=== PATIENT | female | born 1945 | race Caucasian/White ===

== ENCOUNTER → 2018-08-24 12:45 | Outpatient (BNVA) | payer MEDICARE, BC, SELFPAY | PROVIDERS: PCP Family Medicine; Referring Provider Family Medicine; Visit Provider Surgery | DX: Z12.11 Encounter for screening for malignant neoplasm of colon (principal); I10 Essential (primary) hypertension; R14.0 Abdominal distension (gaseous) ==

== ENCOUNTER 2018-09-10 11:53 | Emergency (ER) | payer MEDICARE, BC, SELFPAY ==
[2018-09-10] VITALS (166 sets, daily range): BP systolic 145–183; BP diastolic 72–94; PULSE 63–79; RESP 9–37; TEMP 36.5–36.7; O2SAT 86–99
--- NOTE | 2018-09-10 12:18 | W.ED.GENAD ---
Discharge Plan Disposition Patient Disposition: HOME Condition: Stable Discharge Details Chief Complaint: Chest Pain Clinical Impression: Chest pain in adult, Essential hypertension Primary Care Provider: Sandrine Dolan ED Provider: Karl Virk Home Meds and New Rx's Prescriptions: New ranitidine HCl [Zantac] 150 mg tablet 150 mg PO DAILY Qty: 14 RF: 0 Continued prednisone 20 mg tablet 20 mg PO DAILY PRNRF: 0 polyethylene glycol 3350 17 gram powder in packet 255 g PO DAILY Qty: 15 RF: 0 bisacodyl [Dulcolax (bisacodyl)] 5 mg tablet,delayed release (DR/EC) 5 mg PO ONCE Qty: 4 RF: 0 montelukast [Singulair] 10 MG tablet 10 mg PO HS Qty: 90 RF: 4 fexofenadine [Eunice Allergy] 180 MG tablet 180 mg PO DAILY RF: 0 Discharge Instructions Instructions: Chest Pain (ED) Additional Instructions: Please feel free to return to the emergency department for any new or worsening symptoms, or further concerns she may have. Otherwise follow-up with your primary care provider for reassessment of your high blood pressure along with your chest pain symptoms. Please take medications as prescribed. Referrals: Sandrine Dolan MD, [place] [Primary Care Provider] - (Follow-up with your primary care provider for reassessment.) Discharge Data Discharge Date/Time-TO BE ENTERED AT DEPARTURE: 09/10/18 16:55 Medical Decision Making Pt complaint of Chest pain x 1 week. substernal and epigastric in nature. Patient does state that at times eating makes this worse along with lying flat. Suspicion of GERD but plan to rule out ACS. Physical exam is unremarkable. Plan to check EKG, labs, chest x-ray. Patient given GI cocktail pending results. Labs reviewed and negative troponin otherwise nondiagnostic labs and negative chest x-ray. Second troponin checked and was also negative. Patient remained hypertensive throughout emergency department stay but stated improvement of symptoms specifically after GI cocktail was given initially. Patient was offered outpatient stress testing along with consideration of starting her on a antihypertensive given her high blood pressure that is been persistent through the emergency department stay. Patient is refusing any further medication but is agreeable to trying Zantac to see if this helps. Patient does state that she has a primary care follow-up on Thursday. Close return precautions were discussed with patient and she was informed she may return for any new or worsening symptoms or further concerns she may have. After discussion of diagnosis and plan of care patient has no further needs, questions, or concerns and states clear understanding to return to the emergency department for any worsening symptoms. ECG Data Interpretation: Sinus rhythm, rate of 73, no STEMI, nondiagnostic. EKG reviewed with Dr. Alvarez. [facility] General Mode of arrival: ambulatory. Date/Time Provider Initiated Documentation: 09/10/18 11:55. Limitations to Documentation: no limitations. Information obtained by: patient and RN notes reviewed. History of Present Illness 73 year old F presents to the emergency department with the chief complaint of Chest pain, described as mild, with intensity rated at 2. Quality is described as sharp, and is localized to the chest. Patient started experiencing this week(s) (1) and it has been intermittent. Eating worsens symptoms . Patient notes no other symptoms.. Patient did receive the following treatments prior to arrival, other (Herbal supplements) Related Data Home Medications Medication Instructions Recorded Confirmed montelukast [Singulair] 10 mg PO HS #90 tab-cap NS 03/01/15 09/10/18 fexofenadine [Eunice Allergy] 180 mg PO DAILY tab-cap 04/22/16 09/10/18 prednisone 20 mg tablet 20 mg PO DAILY PRN tab 07/27/18 09/10/18 bisacodyl 5 mg tablet,delayed 5 mg PO ONCE #4 tab 08/24/18 09/10/18 release polyethylene glycol 3350 17 gram 255 g PO DAILY #15 each 08/24/18 09/10/18 oral powder packet ranitidine HCl [Zantac] 150 mg PO DAILY #14 tab 09/10/18 Previous Rx's Medication Instructions Recorded bisacodyl 5 mg tablet,delayed 5 mg PO ONCE #4 tab 08/24/18 release polyethylene glycol 3350 17 gram 255 g PO DAILY #15 each 08/24/18 oral powder packet ranitidine HCl [Zantac] 150 mg PO DAILY #14 tab 09/10/18 Allergies Allergy/AdvReac Type Severity Reaction Status Date / Time albuterol Allergy Mild HIVES; Unverified 09/10/18 12:11 ITCHING metronidazole Allergy Unknown Unverified 09/10/18 12:11 tetanus and diphtheria AdvReac Unknown BECOMES Unverified 09/10/18 12:11 toxoids ILL; HIGH FEVER FOOD STARCH AdvReac Mild CANNOT Uncoded 09/10/18 12:11 NAME THEM ALL GRAIN AdvReac Mild BLOATING Uncoded 09/10/18 12:11 General Stated Complaint: Chest Pain АННА: 2 Review of Systems Constitutional Denies chills, Denies fever(s) and Denies malaise Cardiovascular Reports as per HPI, Reports chest pain, Denies chest pain with activity, Denies syncope, Denies irregular heart rhythm, Denies palpitations and Denies dyspnea Respiratory Denies cough, Denies hemoptysis and Denies dyspnea Gastrointestinal Denies abdominal pain, Reports dyspepsia, Denies nausea and Denies vomiting Musculoskeletal Denies myalgias Neurologic Denies syncope Psychiatric Denies anxiety Endocrine Denies cold intolerance, Denies heat intolerance and Denies palpitations [facility] Medical History Synovial cyst of lumbar facet joint (Chronic 04/08/17) Sleep apnea (Chronic 08/19/17) Neuropathy (Chronic 01/06/17) Low back pain, non-specific (Chronic) Knee pain (Resolved) Insomnia (Chronic) Essential hypertension (Chronic 02/01/18) Dupuytren's contracture of hand (Chronic 04/22/16) Diverticulitis of colon (Chronic) Depressive disorder (Chronic) Cervical spondylosis (Chronic) Asthma (Chronic) Dizzy (Resolved 09/06/15) Dysfunctional uterine bleeding (Resolved) Generalized osteoarthrosis (Resolved) Grief at loss of child (Resolved 11/10/16) Impaired glucose tolerance (Resolved 11/28/13) Impaired renal function (Resolved 11/28/13) Internal derangement of right knee (Resolved 09/17/16) Lateral epicondylitis (Resolved) Lateral epicondylitis (Resolved) Other specified bacterial agents as the cause of diseases classified elsewhere (Resolved) Rash (Resolved 12/03/17) Renal and ureteric calculus (Resolved 02/12/17) Trochanteric bursitis of right hip (Resolved 09/17/16) Ulcerative colitis (Resolved) Postnasal drip (Inactive 12/12/15) Surgical History H/O arthroscopy of knee (Resolved) History of bladder surgery (Resolved) S/P laparoscopic hysterectomy (Resolved) S/P tonsillectomy and adenoidectomy (Resolved) Arthroplasty of knee Bladder Surgery Colonoscopy - MAC (~2006) Hysterectomy, Laproscopic (~1997) Tonsillectomy and adenoidectomy Family History Mother Neoplasm Brother Depression Smoker COPD (chronic obstructive pulmonary disease) Maternal Grandfather Heart disease Paternal Grandfather No problems noted. Maternal Grandmother Neoplasm Stroke Paternal Grandmother Cancer Son Asthma Son Hyperlipidemia Son Adrenal insufficiency Social History Smoking/Tobacco Use Status: Never Alcohol Intake: current Alcohol Intake frequency: 0-2 drinks per day Alcohol type: wine and hard liquor Drug use: Never Substance use type: does not use Caregiver/Support person: No Household members: none Pets and animals: Yes Pets and animals: cat(s) and dog(s) Sexually active: No Current gender identity: decline to answer What is your relationship status?: How often do you talk on the phone with friends or family?: three or more times per week How often do you get together with friends or relatives?: once per week How often do you attend episcopal or mormon services?: 4 or more times per year Do you belong to any clubs or organized social groups?: no Panel score (0-1 are the most socially isolated patients): 2 Duration: decline to answer Frequency: 1-2 times per week Darline/Yazidism: Moravian Special darline needs: No Do you feel safe at home: Yes Do you feel safe in your relationship?: Yes Exam Const General: cooperative, healthy appearing, comfortable, no acute distress, not diaphoretic and not ill appearing Nutritional Appearance: average body habitus Orientation: alert, awake and oriented x3 Limitations: mental status not altered Neck Neck: normal visual inspection, full ROM, trachea midline, supple and no anterior neck swelling Thyroid: thyroid normal Carotids: normal carotid upstroke and no bruits Chest Chest: normal inspection of the chest Resp Effort & Inspection: normal respiratory effort and able to speak in complete sentences Auscultation: clear to auscultation bilaterally Cardio Jugular venous pressure: no JVD Palpation: normal PMI Rate: regular rate Rhythm: regular rhythm Heart Sounds: S1 normal, S2 normal, no click, no gallops, no murmurs and no rubs Bruits: no abdominal aortic bruits and no carotid bruits Pulses: radial pulses present bilaterally 2+ GI Inspection: normal to inspection Palpation: soft, no aortic enlargement, no pulsatile masses and nontender Auscultation: normal bowel sounds Skin General skin exam: no rashes or lesions noted Neuro General: alert, awake, oriented x3, tone normal and moves all extremities Course Vital Signs Temperature 36.7 C 09/10/18 12:01 Pulse 79 09/10/18 12:01 Respiratory Rate 16 09/10/18 12:01 Blood Pressure 182/93 H 09/10/18 12:01 Pulse Oximetry 97 09/10/18 12:01 Temperature 36.7 C 09/10/18 12:01 Temperature Source Temporal Artery Scan 09/10/18 12:01 Pulse 79 09/10/18 12:01 Respiratory Rate 16 09/10/18 12:01 Respiratory Effort Non-Labored 09/10/18 12:05 Blood Pressure 182/93 H 09/10/18 12:01 Blood Pressure Position Supine 09/10/18 12:01 Pulse Oximetry 97 09/10/18 12:01 Oxygen Delivery Method Room Air 09/10/18 12:01 Oxygen Flow Rate 0 09/10/18 12:01 Pain Level 2 09/10/18 12:01
--- NOTE | 2018-09-10 12:22 | ED.GENADUL_ITS ---
Discharge Plan Disposition Patient Disposition: HOME Condition: Stable Discharge Details Chief Complaint: Chest Pain Clinical Impression: Chest pain in adult, Essential hypertension Primary Care Provider: Sandrine Dolan ED Provider: Karl Virk Home Meds and New Rx's Prescriptions: New ranitidine HCl [Zantac] 150 mg tablet 150 mg PO DAILY Qty: 14 RF: 0 Continued prednisone 20 mg tablet 20 mg PO DAILY PRNRF: 0 polyethylene glycol 3350 17 gram powder in packet 255 g PO DAILY Qty: 15 RF: 0 bisacodyl [Dulcolax (bisacodyl)] 5 mg tablet,delayed release (DR/EC) 5 mg PO ONCE Qty: 4 RF: 0 montelukast [Singulair] 10 MG tablet 10 mg PO HS Qty: 90 RF: 4 fexofenadine [Eunice Allergy] 180 MG tablet 180 mg PO DAILY RF: 0 Discharge Instructions Instructions: Chest Pain (ED) Additional Instructions: Please feel free to return to the emergency department for any new or worsening symptoms, or further concerns she may have. Otherwise follow-up with your primary care provider for reassessment of your high blood pressure along with your chest pain symptoms. Please take medications as prescribed. Referrals: Sandrine Dloan MD, [place] [Primary Care Provider] - (Follow-up with your primary care provider for reassessment.) Discharge Data Discharge Date/Time-TO BE ENTERED AT DEPARTURE: 09/10/18 16:55 Medical Decision Making Pt complaint of Chest pain x 1 week. substernal and epigastric in nature. Patient does state that at times eating makes this worse along with lying flat. Suspicion of GERD but plan to rule out ACS. Physical exam is unremarkable. Plan to check EKG, labs, chest x-ray. Patient given GI cocktail pending results. Labs reviewed and negative troponin otherwise nondiagnostic labs and negative chest x-ray. Second troponin checked and was also negative. Patient remained hypertensive throughout emergency department stay but stated improvement of symptoms specifically after GI cocktail was given initially. Patient was offered outpatient stress testing along with consideration of starting her on a antihypertensive given her high blood pressure that is been persistent through the emergency department stay. Patient is refusing any further medication but is agreeable to trying Zantac to see if this helps. Patient does state that she has a primary care follow-up on Thursday. Close return precautions were discussed with patient and she was informed she may return for any new or worsening symptoms or further concerns she may have. After discussion of diagnosis and plan of care patient has no further needs, questions, or concerns and states clear understanding to return to the emergency department for any worsening symptoms. ECG Data Interpretation: Sinus rhythm, rate of 73, no STEMI, nondiagnostic. EKG reviewed with Dr. Alvarez. [facility] General Mode of arrival: ambulatory . Date/Time Provider Initiated Documentation: 09/10/18 11:55 . Limitations to Documentation: no limitations . Information obtained by: patient and RN notes reviewed . History of Present I llness 73 year old F presents to the emergency department with the chief complaint of Chest pain, described as mild, with intensity rated at 2. Quality is described as sharp, and is localized to the chest. Patient started experiencing this week(s) (1) and it has been intermittent. Eating worsens symptoms . Patient notes no other symptoms.. Patient did receive the following treatments prior to arrival, other (Herbal supplements) Related Data Home Medications Medication Instructions Recorded Confirmed montelukast [Singulair] 10 mg PO HS #90 tab-cap NS 03/01/15 09/10/18 fexofenadine [Eunice Allergy] 180 mg PO DAILY tab-cap 04/22/16 09/10/18 prednisone 20 mg tablet 20 mg PO DAILY PRN tab 07/27/18 09/10/18 bisacodyl 5 mg tablet,delayed 5 mg PO ONCE #4 tab 08/24/18 09/10/18 release polyethylene glycol 3350 17 gram 255 g PO DAILY #15 each 08/24/18 09/10/18 oral powder packet ranitidine HCl [Zantac] 150 mg PO DAILY #14 tab 09/10/18 Previous Rx's Medication Instructions Recorded bisacodyl 5 mg tablet,delayed 5 mg PO ONCE #4 tab 08/24/18 release polyethylene glycol 3350 17 gram 255 g PO DAILY #15 each 08/24/18 oral powder packet ranitidine HCl [Zantac] 150 mg PO DAILY #14 tab 09/10/18 Allergies Allergy/AdvReac Type Severity Reaction Status Date / Time albuterol Allergy Mild HIVES; Unverified 09/10/18 12:11 ITCHING metronidazole Allergy Unknown Unverified 09/10/18 12:11 tetanus and diphtheria AdvReac Unknown BECOMES Unverified 09/10/18 12:11 toxoids ILL; HIGH FEVER FOOD STARCH AdvReac Mild CANNOT Uncoded 09/10/18 12:11 NAME THEM ALL GRAIN AdvReac Mild BLOATING Uncoded 09/10/18 12:11 General Stated Complaint: Chest Pain АННА: 2 Review of Systems Constitutional Denies chills, Denies fever(s) and Denies malaise Cardiovascular Reports as per HPI, Reports chest pain, Denies chest pain with activity, Denies syncope, Denies irregular heart rhythm, Denies palpitations and Denies dyspnea Respiratory Denies cough, Denies hemoptysis and Denies dyspnea Gastrointestinal Denies abdominal pain, Reports dyspepsia, Denies nausea and Denies vomiting Musculoskeletal Denies myalgias Neurologic Denies syncope Psychiatric Denies anxiety Endocrine Denies cold intolerance, Denies heat intolerance and Denies palpitations [facility] Medical History Synovial cyst of lumbar facet joint (Chronic 04/08/17) Sleep apnea (Chronic 08/19/17) Neuropathy (Chronic 01/06/17) Low back pain, non-specific (Chronic) Knee pain (Resolved) Insomnia (Chronic) Essential hypertension (Chronic 02/01/18) Dupuytren's contracture of hand (Chronic 04/22/16) Diverticulitis of colon (Chronic) Depressive disorder (Chronic) Cervical spondylosis (Chronic) Asthma (Chronic) Dizzy (Resolved 09/06/15) Dysfunctional uterine bleeding (Resolved) Generalized osteoarthrosis (Resolved) Grief at loss of child (Resolved 11/10/16) Impaired glucose tolerance (Resolved 11/28/13) Impaired renal function (Resolved 11/28/13) Internal derangement of right knee (Resolved 09/17/16) Lateral epicondylitis (Resolved) Lateral epicondylitis (Resolved) Other specified bacterial agents as the cause of diseases classified elsewhere (Resolved) Rash (Resolved 12/03/17) Renal and ureteric calculus (Resolved 02/12/17) Trochanteric bursitis of right hip (Resolved 09/17/16) Ulcerative colitis (Resolved) Postnasal drip (Inactive 12/12/15) Surgical History H/O arthroscopy of knee (Resolved) History of bladder surgery (Resolved) S/P laparoscopic hysterectomy (Resolved) S/P tonsillectomy and adenoidectomy (Resolved) Arthroplasty of knee Bladder Surgery Colonoscopy - MAC (~2006) Hysterectomy, Laproscopic (~1997) Tonsillectomy and adenoidectomy Family History Mother Neoplasm Brother Depression Smoker COPD (chronic obstructive pulmonary disease) Maternal Grandfather Heart disease Paternal Grandfather No problems noted. Maternal Grandmother Neoplasm Stroke Paternal Grandmother Cancer Son Asthma Son Hyperlipidemia Son Adrenal insufficiency Social History Smoking/Tobacco Use Status: Never Alcohol Intake: current Alcohol Intake frequency: 0-2 drinks per day Alcohol type: wine and hard liquor Drug use: Never Substance use type: does not use Caregiver/Support person: No Household members: none Pets and animals: Yes Pets and animals: cat(s) and dog(s) Sexually active: No Current gender identity: decline to answer What is your relationship status?: How often do you talk on the phone with friends or family?: three or more times per week How often do you get together with friends or relatives?: once per week How often do you attend voodoo or zoroastrianism services?: 4 or more times per year Do you belong to any clubs or organized social groups?: no Panel score (0-1 are the most socially isolated patients): 2 Duration: decline to answer Frequency: 1-2 times per week Darline/Jewish: Congregation Special darline needs: No Do you feel safe at home: Yes Do you feel safe in your relationship?: Yes Exam Const General: cooperative, healthy appearing, comfortable, no acute distress, not diaphoretic and not ill appearing Nutritional Appearance: average body habitus Orientation: alert, awake and oriented x3 Limitations: mental status not altered Neck Neck: normal visual inspection, full ROM, trachea midline, supple and no anterior neck swelling Thyroid: thyroid normal Carotids: normal carotid upstroke and no bruits Chest Chest: normal inspection of the chest Resp Effort & Inspection: normal respiratory effort and able to speak in complete sentences Auscultation: clear to auscultation bilaterally Cardio Jugular venous pressure: no JVD Palpation: normal PMI Rate: regular rate Rhythm: regular rhythm Heart Sounds: S1 normal, S2 normal, no click, no gallops, no murmurs and no rubs Bruits: no abdominal aortic bruits and no carotid bruits Pulses: radial pulses present bilaterally 2+ GI Inspection: normal to inspection Palpation: soft, no aortic enlargement, no pulsatile masses and nontender Auscultation: normal bowel sounds Skin General skin exam: no rashes or lesions noted Neuro General: alert, awake, oriented x3, tone normal and moves all extremities Course Vital Signs Temperature 36.7 C 09/10/18 12:01 Pulse 79 09/10/18 12:01 Respiratory Rate 16 09/10/18 12:01 Blood Pressure 182/93 H 09/10/18 12:01 Pulse Oximetry 97 09/10/18 12:01 Temperature 36.7 C 09/10/18 12:01 Temperature Source Temporal Artery Scan 09/10/18 12:01 Pulse 79 09/10/18 12:01 Respiratory Rate 16 09/10/18 12:01 Respiratory Effort Non-Labored 09/10/18 12:05 Blood Pressure 182/93 H 09/10/18 12:01 Blood Pressure Position Supine 09/10/18 12:01 Pulse Oximetry 97 09/10/18 12:01 Oxygen Delivery Method Room Air 09/10/18 12:01 Oxygen Flow Rate 0 09/10/18 12:01 Pain Level 2 09/10/18 12:01
[2018-09-10] MEDS: Normal Saline Flush 10 ML SYR IVP ×2 (12:30→15:42)
[2018-09-10 12:49] LABS: Abs Immature Grans 0.02 k/cumm (0.0-0.09); Absolute Basophil Count 0.03 k/cumm (0.0-0.2); Absolute Eosinophil Count 0.04 k/cumm (0.0-0.7); Absolute Lymphocyte Count 3.52 k/cumm (1.2-3.4); Absolute Monocyte Count 0.65 k/cumm (0.11-0.7); Absolute Neutrophil Count 3.89 k/cumm (1.2-6.7); Basophils % 0.4; Eosinophils % 0.5; HCT 42.4 % (36.0-46.0); HGB 14.3 g/dL (12.0-15.5); Immature Grans % 0.2; Lymphocytes % 43.2; Mean Corp. HGB Concentration 33.7 g/dL (32.0-36.0); Mean Corpuscular Volume 88.9 fL (80-95); Mean Platelet Volume 11.2 fL (8.0-11.0); Neutrophils % 47.7; Platelet Count 221 x1000/uL (130-400); RBC 4.77 m/cumm (4.00-5.20); RBC Distribution Width 13.2 % (11.7-14.6); White Blood Cell Count 8.15 k/cumm (4.4-10.8)
[2018-09-10 13:07] LABS: ALT 27 U/L (12-78); AST 19 U/L (15-37); Albumin 4.2 g/dL (3.4-5.0); Alkaline Phosphatase 98 U/L (46-116); Anion Gap 9.1 mmol/L (3-11); BUN 20 mg/dL (7-18); Bilirubin, Total 0.5 mg/dL (0.2-1.0); CO2 29.9 mmol/L (21.0-32.0); CREATININE 0.94 mg/dL (0.55-1.02); Calcium 9.6 mg/dL (8.5-10.1); Chloride 104 mmol/L (98-107); Estimated GFR 58.53 (mL/min/1.73m2); Glucose 93 mg/dL (70-100); Magnesium 1.9 mg/dL (1.8-2.4); Potassium 3.5 mmol/L (3.5-5.1); Sodium 143 mmol/L (136-145); Total Protein 7.1 g/dL (6.4-8.2)
[2018-09-10 13:11] LABS: Troponin I < 0.02 ng/mL (0.00-0.06)
[2018-09-10 13:19] LABS: D-Dimer 575 ng/mlFEU (<500)
--- NOTE | 2018-09-10 13:21 | DI.RAD_ITS ---
SYMPTOMS/DIAGNOSIS: CHEST PAIN PA AND LATERAL CHEST: Comparison is made with [id number]. The heart size is normal. The aorta is mildly tortuous. The lungs are well inflated and clear. No infiltrate or effusion is seen. There is no evidence of pneumothorax or thoracic compression fracture. IMPRESSION: Negative chest x-ray.
--- NOTE | 2018-09-10 13:23 | NUR.NOTE ---
Escort to radiology by [facility] [employer] Safety Tech at 1310, CxR ordered. Now returned to ED without event.Nursing Note:
[2018-09-10 16:18] LABS: Troponin I < 0.02 ng/mL (0.00-0.06)
--- NOTE | 2018-09-13 10:02 | PDOC.ERCMPRO ---
Care Management Progress Note 09/13-Nash PRIMARY MONTESSORI TEACHER requested assistance with a PCP (Magdaleno) f/u this week for chest pain. Referral faxed to [facility] this am.
--- NOTE | 2018-09-13 10:03 | CMPROGNOTE_ITS ---
Care Management Progress Note 09/13-Nash RADIO TELEVISION TECHNICAL DIRECTOR requested assistance with a PCP (Magdaleno) f/u this week for chest pain. Referral faxed to [facility] this am.
== END 2018-09-10 16:55 | disposition home or self-care (01) ==
PROVIDERS: Emergency Provider Nurse Practitioner Family; PCP Family Medicine
DX: R07.9 Chest pain, unspecified (principal); I10 Essential (primary) hypertension
CPT/HCPCS: 36415; 80053; 93005; 99285; 71046; 83735; 84484; 85025; 85379; 93010

== ENCOUNTER 2018-09-14 00:56 | Outpatient (CLI) | payer MEDICARE, BC, SELFPAY ==
--- NOTE | 2018-09-14 07:06 | DI.US_ITS ---
SYMPTOM/DIAGNOSIS: LUQ PAIN/ABD PAIN R10.9, K21.9, GE REFLUX ABDOMINAL ULTRASOUND: The aorta and vena cava are normal. The liver is normal. The gallbladder is intact. There is no evidence of cholelithiasis or ductal dilatation. The pancreas and spleen are unremarkable. There is a question regarding two echogenic foci in the right kidney in the mid and inferior pole cortex both measuring approximately 2 mm. There is no evidence of right or left hydronephrosis. The left kidney is unremarkable. There is no evidence of free fluid. SUMMARY: Question right nephrolithiasis. No evidence of hydronephrosis. The examination is otherwise unremarkable.
== END 2018-09-14 01:16 ==
PROVIDERS: PCP Family Medicine; Visit Provider Family Medicine
DX: R10.32 Left lower quadrant pain (principal); K21.9 Gastro-esophageal reflux disease without esophagitis
CPT/HCPCS: 76700

== ENCOUNTER → 2018-09-17 11:28 | Outpatient (BNVA) | payer MEDICARE, BC, SELFPAY | PROVIDERS: PCP Family Medicine; Referring Provider Family Medicine; Visit Provider Physical Therapy Assistant | DX: K21.9 Gastro-esophageal reflux disease without esophagitis (principal) | CPT/HCPCS: 99212 ==

== ENCOUNTER 2018-09-20 08:01 | Day surgery (SDC) | payer MEDICARE, BC, SELFPAY ==
--- NOTE | 2018-09-20 07:05 | W.PM.ENDDOP ---
Date of service: 09/20/18 Time of Service: :24 Endoscopy Report DATE OF PROCEDURE: 09/20/18 PRE-OP DIAGNOSIS: Colon Cancer Screening/ GERD/ Atypical chest pain POST-OP DIAGNOSIS: other (Inflammation of duodenum, stomach and esophagus/ Multiple colon polyps and mild diverticulosis) PROCEDURE: 1. EGD with biopsies 2. 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 Olivas was seen in the office originally for a colonoscopy. She then developed some atypical chest pain and was seen in the ER. Cardiac workup was negative. She has a long standing history of GERD. She was seen in the office to discuss adding an EGD. Risks, benefits and complications have been reviewed. Complications include but are not limited to bleeding, pain, perforation, missed small lesion/polyp, sore throat, aspiration and adverse reaction to the medications. Questions were entertained and answered to their satisfaction and they wished to proceed. No guarantees were given or implied. PREP: Miralax/Dulcolax PROCEDURE START TIME: :24 PROCEDURE END TIME: :19 COLONOSCOPY RETRACTION TIME: 32 minutes FINDINGS: 1. EGD- inflammation of duodenum and ulcer inflammation of the antrum inflammation of the esophagus 2. Colonoscopy- sessile (carpet like) polyp of the cecum (>1 cm) sessile polyp in the ascending colon pedunculated polyp in the sigmoid colon at 20 cm Mild sigmoid diverticulosis PROCEDURE DESCRIPTION: After informed consent was obtained the patient was take to the procedure room and placed in a supine position. Monitors were applied and a time out was done. The patients name, date of , procedure type, allergies to medications and metal in their body was reviewed. A bite block was placed and the patient was sedated. Once sedated and comfortable the gastroscope was advanced through the oropharynx which was grossly normal into the esophagus. The proximal and mid-esophagus were normal. In the distal esophagus there was inflammation noted. The scope was advanced into the stomach and through the pylorus into the 3rd portion of the duodenum. The 2nd, 3rd portion of the duodenum was noted to be normal. In the duodenal bulb there was moderate inflammation and an ulcer. Biopsies were done of the ulcer. The scope was retracted back into the stomach and biopsies were done to rule out H. pylori. There were no ulcers. There was mild inflammation noted. The scope was retro-flexed. The cardia and fundus were noted to be normal. There was no hiatal hernia noted. The scope was retracted back into the esophagus and biopsies were done of the GE junction to rule out Barba's. The Z line was slightly irregular. The GE junction was at 32 cm. While the patient was still sedated they were placed in a left decubitous position. A rectal exam was done. External exam was normal. Internal exam revealed a normal sphincter tone and no palpable masses. The scope was then introduced and retro-flexed. No internal hemorrhoids were identified. There were no polyps or masses. The scope was then advanced to the cecum with some difficulty. The TI and appendiceal orifice were identified. The prep was adequate. There was some bilious tinged stool/mucus in the right colon which was irrigated with 500 cc of NS. The scope was then slowly retracted over 32 minutes back into the rectum. There was a carpet like, sessile polyp in the cecum that was removed with a hot snare and cold forceps. There was another ascending polyp which was sessile and was removed with a hot snare. There was a third pedunculated polyp in the sigmoid colon at 20 cm which was removed with a hot snare. The scope was removed and the patient was woken up and taken back to Same day surgery in stable condition. The patient tolerated the procedure well and there were no immediate complications. Follow up: 2 weeks to follow up on her EGD. Should have another EGD in 3 months to make sure the ulcer has healed. Colonoscopy in 3-5 years.
--- NOTE | 2018-09-20 07:08 | W.PM.DSUDISC ---
Discharge Plan Disposition Patient Disposition: HOME Condition: Good Discharge Details Reason For Visit: Colonoscopy/ EGD Attending Provider: Hazel Montana Primary Care Provider: Sandrine Dolan Home Meds and New Rx's Prescriptions: New sucralfate 1 gram tablet 1 gm PO QID Qty: 56 RF: 0 Continued omeprazole 20 mg capsule,delayed release(DR/EC) 20 mg PO DAILY Qty: 30 RF: 4 montelukast [Singulair] 10 MG tablet 10 mg PO HS Qty: 90 RF: 4 fexofenadine [Eunice Allergy] 180 MG tablet 180 mg PO DAILY RF: 0 ranitidine HCl [Zantac] 150 mg tablet 150 mg PO HS RF: 0 Discontinued polyethylene glycol 3350 17 gram powder in packet 255 g PO DAILY Qty: 15 RF: 0 bisacodyl [Dulcolax (bisacodyl)] 5 mg tablet,delayed release (DR/EC) 5 mg PO ONCE Qty: 4 RF: 0 Discharge Instructions Instructions: Colonoscopy (DC), Upper Endoscopy (DC), Colorectal Polyps (DC), Diverticulosis (DC), Diet for Stomach Ulcers and Gastritis (GEN), Duodenitis (DC), Gastritis (DC), Esophagitis (DC) Additional Instructions: Findings: Inflammation and ulcer in the duodenum Inflammation in the stomach and esophagus Multiple polyps in the large bowel and mild duodenitis Follow up: 10/05/18 at 1 pm Please call if you develop: fevers >101.5 Nausea or Vomiting Abdominal pain that is not transient DAY SURGERY UNIT POST COLONOSCOPY INSTRUCTIONS 1. Because there will be medication in your system for the next 24 hours, you may feel a little sleepy. Your coordination will be affected. Therefore: a. Do not drive or operate dangerous equipment for 24 hours. b. Do not drink alcohol beverages for 24 hours (not even beer). c. Plan to go home and rest for the day. 2. Generally there are no restrictions on your activity after a day or so has gone by, but you may feel a bit fatigued for a few days. 3 After you arrive home you may have a light meal and return to a normal diet as you can tolerate it without feeling sick to your stomach. 4. After surgery, you may feel pain or discomfort. This should be only transient, but if it persists please contact your doctor. 5. If there are any questions regarding the findings of your procedure, please feel free to contact your doctor. 6. If you are unable to contact your doctor with a problem, contact the hospital at [phone]. 7. Continue all your regular medications unless directed otherwise. I understand the above instructions and have no questions. Signature of Patient or Responsible Adult Escort Date/Time Name of Responsible Adult Escort Signature of Nurse Date/Time Referrals: Hazel Montana MD [ [facility] STAFF PHYSICIAN] - 10/05/18 1:00 pm Activity:: Activity as Tolerated Diet:: low acid Discharge Orders Discharge Orders: Discharge Order (Routine); Ordered 09/20/18 Ordered By: Hazel Montana DS: Diagnosis Discharge Diagnosis (1) S/P colonoscopy: Status: Acute (2) H/O esophagogastroduodenoscopy: Status: Chronic (3) Colorectal polyps: Status: Acute (4) Gastritis and duodenitis: Status: Acute (5) Esophagitis: Status: Acute
[2018-09-20 08:19] VITALS: BP 138/87; PULSE 79; RESP 18; TEMP 36.6; O2SAT 97
[2018-09-20] MEDS: Lactated Ringers 1,000 ML 80 ML IV (08:46)
--- NOTE | 2018-09-20 09:27 | BOWEL_PTH ---
PATIENT: Reva Olivas LOC: [facility] U#:[id number] AGE/SX: 73/F ROOM: RE09/20/[address]: Hazel Montana MD : 1945 BED: DIS: 09/20/2018 SPEC #: [id number] RECD: 09/20/18 13:07 STATUS: LYNDON RE #: [id number] CHEMA: 09/20/18 09:[address]: Hazel Montana DEPT: Surgical Specimen RECD BY: Mojgan Coleman ENTERED: 09/20/18 13:08 SP TYPE: Bowel OTHR DR: Sandirne Dolan MD, DC Tissues: 1 - BIOPSY BOWEL 2 - STOMACH BIOPSY 3 - ESOPHAGUS BIOPSY 4 - BIOPSY BOWEL 5 - BIOPSY BOWEL 6 - BIOPSY BOWEL Procedures: GROSS AND MICRO LEVEL 4 Comments: [id number]
[2018-09-20 11:05] VITALS: BP 146/90; PULSE 72; RESP 18; TEMP 35.6; O2SAT 99
== END 2018-09-20 12:08 | disposition home or self-care (01) ==
LOC: SUR 08:02
PROVIDERS: PCP Family Medicine; Visit Provider Surgery
PROC: (CPT 45385; principal; 2018-09-20 09:00)
DX: Z12.11 Encounter for screening for malignant neoplasm of colon (principal); D12.0 Benign neoplasm of cecum; D12.2 Benign neoplasm of ascending colon; D12.5 Benign neoplasm of sigmoid colon; K57.30 Diverticulosis of large intestine without perforation or abscess without bleeding; K21.9 Gastro-esophageal reflux disease without esophagitis; R07.89 Other chest pain; K29.80 Duodenitis without bleeding; K31.89 Other diseases of stomach and duodenum; K20.9 Esophagitis, unspecified; I10 Essential (primary) hypertension; J45.909 Unspecified asthma, uncomplicated
CPT/HCPCS: 45385; 45380; 43239; 88305

== ENCOUNTER → 2018-10-05 09:55 | Outpatient (BNVA) | payer MEDICARE, BC, SELFPAY | PROVIDERS: PCP Family Medicine; Referring Provider Family Medicine; Visit Provider Surgery | DX: D12.6 Benign neoplasm of colon, unspecified (principal); K20.9 Esophagitis, unspecified; K29.90 Gastroduodenitis, unspecified, without bleeding; Z80.0 Family history of malignant neoplasm of digestive organs; I10 Essential (primary) hypertension | CPT/HCPCS: 99213 ==

== ENCOUNTER 2019-01-14 01:06 | Outpatient (CLI) | payer MEDICARE, BC, SELFPAY ==
--- NOTE | 2019-01-14 15:29 | DI.RAD_ITS ---
SYMPTOM/DIAGNOSIS: LBP, M54.41, LUMBAGO WITH SCIATICA RIGHT SIDE LUMBAR SPINE: AP, lateral and bilateral oblique views of the lumbar spine were obtained. There is Grade 1 pseudospondylolisthesis of L4 on L5. There is disc space narrowing at L1 L2. End plate osteophytes are present throughout the lumbar spine with relative sparing at the L5-S1 disc space. Degenerative changes of the facets are present throughout the lumbar spine. No acute fractures or subluxations are seen. IMPRESSION: Moderate degenerative changes in the lumbar spine.
== END 2019-01-14 01:26 ==
PROVIDERS: PCP Family Medicine; Visit Provider Family Medicine
DX: M54.41 Lumbago with sciatica, right side (principal); M47.26 Other spondylosis with radiculopathy, lumbar region
CPT/HCPCS: 72110

== ENCOUNTER → 2019-02-24 08:18 | Outpatient (BNVA) | payer MEDICARE, BC, SELFPAY | PROVIDERS: PCP Family Medicine; Visit Provider Psychiatry & Neurology Neurology | DX: M48.061 Spinal stenosis, lumbar region without neurogenic claudication (principal); M71.38 Other bursal cyst, other site; I10 Essential (primary) hypertension | CPT/HCPCS: 95886; 95908; 99204; 99214 ==

== ENCOUNTER 2019-06-02 11:45 | Outpatient (CLI) | payer MEDICARE, BC, SELFPAY ==
[2019-06-02 12:52] LABS: HCT 42.6 % (36.0-46.0); HGB 14.3 g/dL (12.0-15.5); Mean Corp. HGB Concentration 33.6 g/dL (32.0-36.0); Mean Corpuscular Hemoglobin 30.2 pg (27.0-33.0); Mean Corpuscular Volume 89.9 fL (80-95); Mean Platelet Volume 11.4 fL (8.0-11.0); Platelet Count 190 x1000/uL (130-400); RBC 4.74 m/cumm (4.00-5.20); RBC Distribution Width 12.8 % (11.7-14.6); White Blood Cell Count 5.03 k/cumm (4.4-10.8)
[2019-06-02 13:27] LABS: BUN 22 mg/dL (7-18); CREATININE 0.78 mg/dL (0.55-1.02); Calcium 9.6 mg/dL (8.5-10.1); Chloride 107 mmol/L (98-107); FREE T4 0.98 ng/dL (0.76-1.46); Glucose 94 mg/dL (74-106); Potassium 4.7 mmol/L (3.5-5.1); Sodium 144 mmol/L (136-145); TSH 1.74 uIU/mL (0.36-3.74)
== END 2019-06-02 12:05 ==
PROVIDERS: PCP Family Medicine; Visit Provider Nurse Practitioner Family
DX: R53.83 Other fatigue (principal)
CPT/HCPCS: 36415; 80048; 85027; 84439; 84443

== ENCOUNTER 2020-04-16 01:12 | Outpatient (CLI) | payer MEDICARE, BC, SELFPAY ==
--- NOTE | 2020-04-16 06:30 | DI.MAMMO_ITS ---
EXAM: MAMMO SCREENING CLINICAL HISTORY: screening,Z12.39 TECHNIQUE: Mammograms were interpreted according to the usual protocol including computer analysis w [employer] CAD system, tomosynthesis and C-view imaging. COMPARISON: 2010 through 2017 FINDINGS: The breasts are composed of scattered fibroglandular densities, Breast Density category B. No suspicious masses or suspicious microcalcifications are seen. No skin thickening or abnormal axillary lymph nodes are seen. There has been no significant change from prior exams. IMPRESSION: BI-RADS Category 1, Negative mammogram Yearly screening mammography is recommended. Breast Density - Category B, scattered fibroglandular densities. A negative radiographic report should not delay biopsy if a dominant or clinically suspicious mass is present. Up to ten percent of cancers are not identified on mammography. A negative report may reinforce clinical impression. Adenosis and dense breasts may obscure an underlying neoplasm. False positive reports average 6 to 10%. Patient will receive a letter notifying them of these results.
== END 2020-04-16 01:32 ==
PROVIDERS: PCP Family Medicine; Visit Provider Family Medicine
DX: Z12.31 Encounter for screening mammogram for malignant neoplasm of breast (principal)
CPT/HCPCS: 77063; 77067

== ENCOUNTER 2020-05-11 01:50 | Outpatient (CLI) | payer MEDICARE, BC, SELFPAY ==
[2020-05-11 13:36] LABS: HCT 42.1 % (36.0-46.0); HGB 14.3 g/dL (11.2-15.7); MCH 30.3 pg (27.0-33.0); MCV 89.2 fL (80-95); MPV 11.9 fL (8.0-11.0); Platelet Count 180 10^3/uL (130-400); RBC 4.72 10^6/uL (3.93-5.22); RDW 12.4 % (11.7-14.6); RDW-SD 40.5 fL; WBC 5.18 10^3/uL (4.4-10.8)
[2020-05-11 14:12] LABS: Hemoglobin A1C 5.6 % (<5.7)
[2020-05-11 15:02] LABS: ALT 68 U/L (14-59); AST 41 U/L (15-37); Albumin 4.6 g/dL (3.4-5.0); Alkaline Phosphatase 90 U/L (46-116); Anion Gap 11.4 mmol/L (3-11); BUN 20 mg/dL (7-18); Bilirubin, Total 0.7 mg/dL (0.2-1.0); CO2 26.6 mmol/L (21.0-32.0); CREATININE 0.96 mg/dL (0.55-1.02); Calcium 9.1 mg/dL (8.5-10.1); Chloride 104 mmol/L (98-107); Estimated GFR 56.97 (mL/min/1.73m2); Glucose 94 mg/dL (74-106); Potassium 4.1 mmol/L (3.5-5.1); Sodium 142 mmol/L (136-145); Total Protein 7.2 g/dL (6.4-8.2); Vitamin B12 689 pg/mL (193-986)
== END 2020-05-11 02:10 ==
PROVIDERS: PCP Family Medicine; Visit Provider Family Medicine
DX: M79.2 Neuralgia and neuritis, unspecified (principal); E11.9 Type 2 diabetes mellitus without complications
CPT/HCPCS: 36415; 80053; 85027; 82607; 83036; 84443

== ENCOUNTER 2020-08-17 02:09 | Outpatient (CLI) | payer MEDICARE, BC, SELFPAY ==
[2020-08-18 13:53] LABS: COVID-19 RT-PCR UVMMC Result Negative (Negative)
== END 2020-08-17 02:10 | disposition home or self-care (01) ==
LOC: LBO 02:09
PROVIDERS: PCP Family Medicine; Visit Provider Family Medicine
DX: Z20.822 Contact with and (suspected) exposure to COVID-19 (principal); Z01.818 Encounter for other preprocedural examination
CPT/HCPCS: U0003; U0005

== ENCOUNTER 2020-08-20 03:30 | Outpatient (CLI) | payer MEDICARE, BC, SELFPAY ==
--- NOTE | 2020-08-27 15:39 | W.PFT ---
Date of service: 08/20/20 Time of Service: 15:00 Pulmonary Function Test Result Interpretation Spirometry: Mild obstructive airways disease, no bronchodilator testing was carried out Impression Mild obstructive airways disease, no bronchodilator testing was carried out, when compared to previous one from 08/08/2009, she has an 170 cc improvement in FVC, FEV1 has improved by 120 cc Clinical Correlation therefore is recommended.
== END 2020-08-20 03:31 | disposition home or self-care (01) ==
LOC: RT 03:31
PROVIDERS: PCP Family Medicine; Visit Provider Family Medicine
DX: J45.909 Unspecified asthma, uncomplicated (principal)
CPT/HCPCS: 94010

== ENCOUNTER 2020-10-16 01:00 | Outpatient (CLI) | payer MEDICARE, BC, SELFPAY ==
--- OUTSIDE RECORDS SUMMARY | 2020-09-24 18:57 | XMS_ITS ---
:1945 Author Care Team Providers Name Role Phone CARMEN BAUMAN Primary Care Provider [phone] DR. CARLSO FREEMAN Referring Provider [phone] [facility] OTHER [phone] Allergies Code Code System Name Reaction Severity Status Onset 1885 RxNorm Caffeine ? ? Active ? [place] ? ? Active ? [id number] RxNorm Gluten ? ? Active ? Notes: seasonal Medications Name Status Start Date Stop Date ? ? Eunice Allergy Active ? Not available daily Ambien 10 mg tablet Completed 10/16/2015 10/17/2015 1 (one) Tablet: Take HS night of sleep study, may repeat x 1 azelastine 0.05 % eye drops Completed ? 07/01 azithromycin 250 mg tablet Completed ? 03/02 as needed celecoxib 200 mg capsule Completed ? 018 doxycycline monohydrate 100 mg Completed ? 0 03/02/2018 capsule hydrochlorothiazide 25 mg tablet Completed ? 07/29/2018 meloxicam 7.5 mg tablet Completed ? 11/18/19 18 montelukast 10 mg tablet Active ? Not erinn ilable omeprazole 20 mg capsule,delayed Completed ? 07/29/2018 release prednisolone acetate 1 % eye Completed ? drops,suspension prednisone 20 mg tablet Completed ? 03/02/20 18 as needed Problems Name Status Onset Date Source ? Bacterial Infectious Disease Active ? His tory Depressive Disorder Active ? History Insomnia Active ? History Obstructive Sleep Apnea Syndrome Active ? History Periodic Limb Movement Disorder Active ? History Hypertensive Disorder Active ? ? Tracheobronchitis Active ? History Asthma Active ? History Ulcerative Colitis Active ? History Diverticulitis of Large Intestine Active ? History Kidney Disease Active ? History Degenerative Joint Disease Involving Multiple Active ? History Joints Arthropathy Active ? History Knee Pain Active ? History Spondylosis without Myelopathy Active ? H istory Low Back Pain Active ? History Lateral Epicondylitis Active ? History Dizziness and Giddiness Active ? History Sleep Disorder Active ? History Impaired Glucose Tolerance Active ? Histo ry Procedures None recorded. Results Lab Results None recorded. Past Encounters 08/30/2019 Obstructive Sleep Apnea Syndrome Carmen Bauman, NUTRITIONAL SERVICES DIRECTOR: [address] [place] [phone], Ph. Social History Tobacco Smoking Status Former Smoker Notes: teenage r Vaccine List None recorded. Plan of Care Reminders Provider Appointments None ? ? recorded. Lab None ? ? recorded. Referral None ? ? recorded. Procedures None ? ? recorded. Surgeries None ? ? recorded. Imaging None ? ? recorded. Vitals 08/30/2019 02:00PM Office 30 Height Weight BMI Blood Pressure 165.1 cm 80.74 kg 29.6 kg/m2 138/78 mm[Hg] 07/29/2018 10:15AM Office 30 Height Weight BMI Blood Pressure 167.64 cm 75.07 kg 26.7 kg/m2 138/70 mm[Hg] 03/02/2018 01:15PM Office 30 Height Weight BMI Blood Pressure 167.64 cm 77.43 kg 27.6 kg/m2 136/70 mm[Hg] 11/17/2017 09:00AM Office 15 Height Weight BMI Blood Pressure 167.64 cm 77.11 kg 27.4 kg/m2 130/82 mm[Hg] 07/14/2017 Blood Pressure 144/74 mm[Hg] 07/14/2017 Height Weight 167.64 cm 78.02 kg 06/09/2017 Blood Pressure 138/78 mm[Hg] 06/09/2017 Height Weight 167.64 cm 78.08 kg 05/14/2017 Height 167.64 cm 05/14/2017 Blood Pressure 136/96 mm[Hg] 11/04/2016 Blood Pressure 126/76 mm[Hg] 11/04/2016 Height Weight 167.64 cm 78.93 kg 05/20/2016 Blood Pressure 130/82 mm[Hg] 05/20/2016 Height Weight 167.64 cm 79.38 kg 04/08/2016 Height Weight 167.64 cm 76.91 kg 04/08/2016 Blood Pressure 118/76 mm[Hg] 10/30/2015 Blood Pressure 124/76 mm[Hg] 10/30/2015 Height Weight 167.64 cm 74.39 kg 10/16/2015 Blood Pressure 122/78 mm[Hg] 10/16/2015 Height Weight 167.64 cm 74.45 kg
--- NOTE | 2020-10-16 07:15 | DI.US_ITS ---
EXAM: US ABDOMEN INDICATION: ruq abd pain,R10.11 COMPARISON: US US ABDOMEN from 09/14/2018 TECHNIQUE: Ultrasound abdomen performed using standard protocol FINDINGS: Abdominal ultrasound was performed according to the usual protocol. The liver is normal in size and shape. No focal hepatic lesion seen. The hepatic parenchyma appears mildly echogenic which may reflect hepatic steatosis. There is cholelithiasis with a 11 millimeter in diameter stone noted. No gallbladder wall thickening or pericholecystic fluid collection. There is no biliary dilatation. Pancreas appears intact as visualized. Spleen is unremarkable in appearance with no focal lesion. Kidneys are normal in size and shape. No renal mass, hydronephrosis, or nephrolithiasis. Abdominal aorta and IVC are of normal diameter. IMPRESSION: Cholelithiasis. Question hepatic steatosis. Examination is otherwise within normal limits.
== END 2020-10-16 01:20 ==
PROVIDERS: PCP Family Medicine; Visit Provider Nurse Practitioner
DX: R10.11 Right upper quadrant pain (principal); K76.0 Fatty (change of) liver, not elsewhere classified; K80.20 Calculus of gallbladder without cholecystitis without obstruction
CPT/HCPCS: 76700

== ENCOUNTER 2020-10-16 02:37 | Outpatient (CLI) | payer MEDICARE, BC, SELFPAY ==
[2020-10-16 12:34] LABS: ALT 61 U/L (14-59); AST 30 U/L (15-37); Albumin 4.5 g/dL (3.4-5.0); Alkaline Phosphatase 92 U/L (46-116); Amylase 51 U/L (25-115); Bilirubin, Direct 0.1 mg/dL (0.0-0.2); Bilirubin, Total 0.7 mg/dL (0.2-1.0); Total Protein 7.1 g/dL (6.4-8.2)
== END 2020-10-16 02:38 | disposition home or self-care (01) ==
LOC: LBO 02:37
PROVIDERS: PCP Family Medicine; Visit Provider Nurse Practitioner
DX: R10.11 Right upper quadrant pain (principal); K76.0 Fatty (change of) liver, not elsewhere classified; K80.20 Calculus of gallbladder without cholecystitis without obstruction
CPT/HCPCS: 36415; 80076; 76700; 82150

== ENCOUNTER 2021-04-09 03:41 | Outpatient (CLI) | payer MEDICARE, BC, SELFPAY ==
[2021-04-09 11:02] LABS: Bilirubin Negative (Negative); Blood Negative (Negative); Clarity Clear (Clear); Glucose Negative (Negative); Ketones Negative (Negative); Leukocyte Esterase Negative (Negative); Nitrite Negative (Negative); Specific Gravity 1.025 (1.005-1.025); Urobilinogen 0.2 EU/dL (Up TO 0.2)
[2021-04-09 12:06] LABS: Anion Gap 9.7 mmol/L (3-11); BUN 25 mg/dL (7-18); CO2 26.3 mmol/L (21.0-32.0); Calcium 9.3 mg/dL (8.5-10.1); Calculated LDL 178 mg/dL (<100); Chloride 104 mmol/L (98-107); Cholesterol 262 mg/dL (<200); Glucose 103 mg/dL (74-106); HDL Cholesterol 62 mg/dL (40-60); Potassium 4.5 mmol/L (3.5-5.1); Sodium 140 mmol/L (136-145); Triglyceride 112 mg/dL (<150)
== END 2021-04-09 03:42 | disposition home or self-care (01) ==
LOC: LBO 03:42
PROVIDERS: PCP Family Medicine; Visit Provider Family Medicine
DX: I10 Essential (primary) hypertension (principal); Z00.00 Encounter for general adult medical examination without abnormal findings
CPT/HCPCS: 36415; 80048; 80061; 81003

== ENCOUNTER 2021-06-03 15:03 | Outpatient (CLI) | payer MEDICARE, BC, SELFPAY ==
--- NOTE | 2021-06-03 15:00 | RT.EKG_ITS ---
APPROVED REPORT Exam: Resting ECG Reason for Exam: Pre-op Patient Location: O HR:95 bpm ECG Measurements Heart Rate 95 AXIS NE 137 P -20 QRSd 76 QRS -22 QT 350 T 64 QTc 440 Conclusion Sinus rhythm...normal P axis, V-rate 60- 99
== END 2021-06-03 15:04 | disposition home or self-care (01) ==
LOC: DI.CM 15:04
PROVIDERS: PCP Family Medicine; Visit Provider Family Medicine
DX: Z01.818 Encounter for other preprocedural examination (principal)
CPT/HCPCS: 93010

== ENCOUNTER 2021-09-06 08:36 | Outpatient (CLI) | payer MEDICARE, BC, SELFPAY ==
--- NOTE | 2021-09-06 08:15 | DI.RAD_ITS ---
Exam(s) XR KNEE RT 3V AP,LAT,SANDEE EXAM: XR KNEE RT 3V AP,LAT,SANDEE CLINICAL HISTORY: right knee pain. TECHNIQUE: 2D digital imaging was performed. COMPARISON: CR LEFT KNEE 3 VIEW COMPLETE from 03/07/2014 FINDINGS: Three views of the right knee reveal no evidence of fracture but there is a joint effusion noted. Th ere are moderate degenerative changes in the medial lateral compartments. Chondrocalcinosis is noted in both medial lateral compartments. Mild degenerative changes in the patellofemoral compartment. Bone density normal. No osseous lesions. IMPRESSION: Degenerative changes as described above. There is also a joint effusion evident DATA REPOSITORY: RADIATION DOSE DELIVERED:
== END 2021-09-06 08:37 | disposition home or self-care (01) ==
LOC: DIORS 08:36
PROVIDERS: PCP Family Medicine; Referring Provider Family Medicine; Visit Provider Student in an Organized Health Care Education/Training Program
DX: M17.11 Unilateral primary osteoarthritis, right knee
CPT/HCPCS: 73562; 99212

== ENCOUNTER → 2021-09-27 00:25 | Outpatient (CLI) | payer MEDICARE, BC, SELFPAY ==
--- NOTE | 2021-09-27 08:30 | DI.CT_ITS ---
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 Evaluat e for sinusitis. TECHNIQUE: Imaging Protocol: Axial computed tomography images with coronal and sagittal reformatted images were created and reviewed. COMPARISON: No exams were available for comparison FINDINGS: AXIAL IMAGES: Frontal sinuses: Normally aerated. Ethmoid air cells: Normally aerated. Maxillary sinuses: There is mild mucosal thickening in the floor of the left maxillary sinus. The ri ght maxillary sinus unremarkable. Sphenoid sinus: Normally aerated. Ostiomeatal complexes: Patent. Osseous nasal septum: Mildly deviates to the right. Visualized regional soft tissues: No acute findings. Orbits: Unremarkable. Bones: Unremarkable. Mastoid Air Cells: Normally aerated. IMPRESSION: Mild mucosal thickening in the left maxillary sinus. Otherwise the visualized paranasal sinuses are clear. RADIATION DOSE DELIVERED: 126.08mGy.cm Total DLP 126.08mGy.cm Total DLP DATA REPOSITORY: All CT scans at this facility are submitted to the National Radiology Data Registry (NRDR) Dose Index Registry (DIR) with the [employer] (ACR). RADIATION OPTIMIZATION: All CT scans at this facility use at least one of these dose optimization te chniques: automated exposure control; mA and/or kV adjustment per patient size (includes targeted exa ms where dose is matched to clinical indication); or iterative reconstruction.
== END ==
PROVIDERS: PCP Family Medicine; Visit Provider Ophthalmology
DX: H04.551 Acquired stenosis of right nasolacrimal duct (principal); R93.89 Abnormal findings on diagnostic imaging of other specified body structures
CPT/HCPCS: 70486

== ENCOUNTER → 2022-02-11 00:59 | Outpatient (CLI) | payer MEDICARE, BC, SELFPAY ==
--- NOTE | 2022-02-11 07:15 | DI.MAMMO_ITS ---
Exam(s) MAMMO SCREENING EXAM: MAMMO SCREENING CLINICAL HISTORY: screening,Z12.39. TECHNIQUE: Bilateral full field digital CC and MLO mammographic images were obtained with 3D tomosyn thesis and utilizing computer aided detection (CAD). COMPARISON: Prior mammograms were reviewed, the most recent being March 2020. FINDINGS: There has been no significant change in the appearance and distribution of the fibroglandular tissue. There are no new spiculated masses nor malignant appearing microcalcification groups. There is no significant architectural distortion nor skin thickening-retraction. IMPRESSION: No radiographic evidence of malignancy. BI-RADS Category 1 - Negative Breast Density - Category B - Scattered areas of fibroglandular density Breast density Category C or D implies that the patient has dense breast tissue. Dense breast tissue can make it harder to find cancer on a mammogram. Dense breast tissue is also associated with an incr eased risk of breast cancer. This information about the result of the mammogram report was provided to the patient to raise their awareness. Use this report when you speak with the patient about their risks for breast cancer, which includes their family history. At that time, you may recommend additional screening tests (Ultrasoun d or MRI) as these tests may add significant information. A negative radiographic report should not delay biopsy if a dominant or clinically suspicious mass is present. Up to ten percent of cancers are not identified on mammography. A negative report may reinforce clinical impression. Adenosis and dense breasts may obscure an underlying neoplasm. False positive reports average 6 to 10%. Patient will receive a letter notifying them of these results.
== END ==
PROVIDERS: PCP Family Medicine; Visit Provider Family Medicine
DX: Z12.31 Encounter for screening mammogram for malignant neoplasm of breast (principal)
CPT/HCPCS: 36415; 77063; 77067; 82565

== ENCOUNTER 2022-02-11 01:30 | Outpatient (CLI) | payer MEDICARE, BC, SELFPAY ==
[2022-02-11 13:42] LABS: CREATININE 0.9 mg/dL (0.55-1.02)
== END 2022-02-11 01:31 | disposition home or self-care (01) ==
LOC: LBO 01:31
PROVIDERS: PCP Family Medicine; Visit Provider Family Medicine
DX: R22.1 Localized swelling, mass and lump, neck (principal); Z01.812 Encounter for preprocedural laboratory examination
CPT/HCPCS: 36415; 82565

== ENCOUNTER → 2022-02-18 01:26 | Outpatient (CLI) | payer MEDICARE, BC, SELFPAY ==
--- NOTE | 2022-02-18 07:15 | DI.CT_ITS ---
Exam(s) CT NECK W EXAM: CT NECK W CLINICAL HISTORY: mass in right neck,R22.1 TECHNIQUE: COMPARISON: No exams were available for comparison FINDINGS: CT examination of the cervical region was performed with intravenous infusion of 100 cc of Omnipaque 350. Visualized lung apices are clear. Visualized thoracic aorta and major vasculature of the cervical re gion is intact. Visualized portions of the orbits, paranasal sinuses, and mastoid air cells appear i ntact. Visualized brain is normal. Salivary glands are normal in appearance bilaterally. There is no cervical mass or adenopathy. Trac heolaryngeal structures appear intact. BB marker is placed on the right lateral aspect of the neck at approximately the C4-C5 level, corresp onding to the question palpable mass. There are marked hypertrophic degenerative changes seen throug hout the cervical spine with the most prominent lateral osteophytes present at C4-C5 on the right. IMPRESSION: No soft tissue mass identified in the cervical region. Very prominent hypertrophic changes of the ce rvical spine are noted, particularly in the region where there is a questionable palpable mass. Plea se see above discussion. RADIATION DOSE DELIVERED: 471mGy.cm Total DLP !Error CTDIvol DATA REPOSITORY: All CT scans at this facility are submitted to the National Radiology Data Registry (NRDR) Dose Index Registry (DIR) with the [employer] (ACR). RADIATION OPTIMIZATION: All CT scans at this facility use at least one of these dose optimization te chniques: automated exposure control; mA and/or kV adjustment per patient size (includes targeted exa ms where dose is matched to clinical indication); or iterative reconstruction.
[2022-02-18] MEDS: Omnipaque 350 MG/ML 100 ML BTL IV (13:26)
== END ==
PROVIDERS: PCP Family Medicine; Visit Provider Family Medicine
DX: R22.1 Localized swelling, mass and lump, neck (principal)
CPT/HCPCS: 70491; J3490

== ENCOUNTER 2022-11-13 12:22 | Outpatient (REF) | payer MEDICARE, BC, SELFPAY ==
[2022-11-13 12:22] LABS: Bilirubin Negative (Negative); Blood Trace-lysed (Negative); Clarity Cloudy (Clear); Glucose Negative (Negative); Ketones Negative (Negative); Leukocyte Esterase Large (Negative); Nitrite Positive (Negative); Specific Gravity 1.025 (1.005-1.025); Urobilinogen 0.2 mg/dL (Up to 0.2)
[2022-11-13 12:34] LABS: Bacteria Many HPF (Negative); C & S Indicated? Yes; WBC >50 HPF (0-5)
== END 2022-11-13 12:23 | disposition home or self-care (01) ==
LOC: LBN 12:22
PROVIDERS: PCP Family Medicine; Visit Provider Family Medicine
DX: R35.0 Frequency of micturition (principal)
CPT/HCPCS: 87077; 81003; 81015; 87086; 87186

== ENCOUNTER 2022-11-14 03:07 | Outpatient (CLI) | payer MEDICARE, BC, SELFPAY ==
[2022-11-14 16:24] LABS: Abs Immature Grans 0.05 10^3/uL (0.0-0.06); Absolute Basophil Count 0.03 10^3/uL (0.0-0.2); Absolute Eosinophil Count 0.01 10^3/uL (0.0-0.7); Absolute Lymphocyte Count 1.84 10^3/uL (1.2-3.4); Absolute Monocyte Count 0.69 10^3/uL (0.1-0.8); Absolute Neutrophil Count 6.96 10^3/uL (1.2-6.7); Basophils % 0.3; Eosinophils % 0.1; HCT 43.5 % (36.0-46.0); HGB 14.5 g/dL (11.2-15.7); Immature Grans % 0.5; Lymphocytes % 19.2; MCH 29.7 pg (27.0-33.0); MCHC 33.3 % (32.0-36.0); MCV 89 fL (80-95); MPV 10.8 fL (8.0-11.0); Monocytes % 7.2; Neutrophils % 72.7; Platelet Count 224 10^3/uL (130-400); RBC 4.89 10^6/uL (3.93-5.22); RDW 12.8 % (11.7-14.6); RDW-SD 41.9 fL; WBC 9.58 10^3/uL (4.4-10.8)
[2022-11-14 17:36] LABS: ALT 30 U/L (14-59); AST 15 U/L (15-37); Albumin 4.1 g/dL (3.4-5.0); Alkaline Phosphatase 92 U/L (46-116); Anion Gap 10.7 mmol/L (3-11); BUN 27 mg/dL (7-18); Bilirubin, Total 0.4 mg/dL (0.2-1.0); CO2 25.3 mmol/L (21.0-32.0); Chloride 107 mmol/L (98-107); Estimated GFR 58.39 (mL/min/1.73m2); Glucose 126 mg/dL (74-106); Potassium 3.9 mmol/L (3.5-5.1); Sodium 143 mmol/L (136-145); TSH (W/Ref FT4) 0.55 uIU/mL (0.36-3.74); Total Protein 7.4 g/dL (6.4-8.2)
== END 2022-11-14 03:08 | disposition home or self-care (01) ==
LOC: LBO 03:07
PROVIDERS: PCP Family Medicine; Visit Provider Family Medicine
DX: I10 Essential (primary) hypertension (principal); R22.1 Localized swelling, mass and lump, neck; E78.00 Pure hypercholesterolemia, unspecified; K21.9 Gastro-esophageal reflux disease without esophagitis
CPT/HCPCS: 36415; 80053; 84443; 85025

== ENCOUNTER 2022-12-09 00:41 | Outpatient (CLI) | payer MEDICARE, BC, SELFPAY ==
--- NOTE | 2022-12-09 08:15 | DI.CT_ITS ---
Exam(s) CT NECK W EXAM: CT NECK W INDICATION: mass enlarging,R22.1. COMPARISON: CT CT NECK W from 02/18/2022 TECHNIQUE: BB marker was placed over area of palpable concern on the right side of the neck. FINDINGS: BB SKIN MARKER: This is on the right side of the neck at relatively similar location to the February 15 study. There is no subcutaneous nor deeper mass at this level evident. However quite deep to thi s level there is again noted advanced degenerative change in the right facet joint of the cervical sp ine at this level, possibly corresponding with the patient is feeling. There is no abnormality in th e subcutaneous fat at this level nor in the muscular layer and there is no adenopathy. VISUALIZED PARANASAL SINUSES: Unremarkable. NASOPHARYNX: Unremarkable ORODENTAL: Unremarkable. OROPHARYNX: Unremarkable. No masses evident. HYPOPHARYNX: Unremarkable. Valleculae and epiglottis and aryepiglottic folds appear normal. VOCAL CORDS: Unremarkable. No masses evident. Subglottic airway appears unremarkable. THYROID GLAND: Unremarkable. Normal size and no obvious nodules. SALIVARY GLANDS: Unremarkable. No significant findings in the parotid and submandibular glands. LYMPH NODES: There is no adenopathy evident in the neck and supraclavicular regions. OTHER: VISUALIZED LUNG APICES: No significant findings. IMPRESSION: 1. There is no soft tissue mass evident in the cervical region subjacent to the right-sided skin mar ker nor elsewhere on either side of the neck. Also no lymphadenopathy evident. 2. Again noted is very prominent hypertrophic changes in the cervical spine facet joints on the righ t side in this region, and I wonder if this patient is actually feeling this bony finding. RADIATION DOSE DELIVERED: 324.34mGy.cm Total DLP DATA REPOSITORY: All CT scans at this facility are submitted to the National Radiology Data Registry (NRDR) Dose Index Registry (DIR) with the [employer] (ACR). RADIATION OPTIMIZATION: All CT scans at this facility use at least one of these dose optimization te chniques: automated exposure control; mA and/or kV adjustment per patient size (includes targeted exa ms where dose is matched to clinical indication); or iterative reconstruction.
[2022-12-09] MEDS: Normal Saline - Diluent 50 ML VIAL IJ (14:41)
[2022-12-09] MEDS: Omnipaque 350 MG/ML 100 ML BTL IJ (14:41)
[2022-12-09] MEDS: Normal Saline Flush 10 ML SYR IVP (14:42)
== END 2022-12-09 01:01 ==
LOC: DI 00:41
PROVIDERS: PCP Family Medicine; Visit Provider Family Medicine
DX: M47.892 Other spondylosis, cervical region
CPT/HCPCS: 70491; J3490

== ENCOUNTER → 2023-10-05 10:40 | Outpatient (BNVA) | payer MEDICARE, BC, SELFPAY | PROVIDERS: PCP Family Medicine; Referring Provider Family Medicine; Visit Provider Student in an Organized Health Care Education/Training Program | DX: M65.312 Trigger thumb, left thumb (principal) | CPT/HCPCS: 99213 ==

== ENCOUNTER 2023-11-03 06:26 | Day surgery (SDC) | payer MEDICARE, BC, SELFPAY ==
[2023-11-03 06:30] VITALS: BP 156/73; PULSE 79; RESP 17; TEMP 36.5; O2SAT 96
--- NOTE | 2023-11-03 07:03 | PDOC.DSDIS_ITS ---
Date of service: 11/03/23 Time of Service: 07:04 Discharge Plan Disposition Patient Disposition: Home Condition: Good Discharge Details Reason For Visit: L Trigger Thumb Release Attending Provider: Kareem Espinoza Primary Care Provider: Sandrine Dolan Home Meds and New Rx's Prescriptions: New acetaminophen 500 mg tablet 1,000 mg PO TID Qty: 90 0RF ibuprofen 600 mg tablet 600 mg PO TID PRN (Reason: pain) Qty: 90 0RF Continued albuterol sulfate 90 mcg/actuation HFA aerosol inhaler 2 inh IH Q4H PRN (Reason: bronchospasm) Qty: 8.5 4RF prednisolone acetate 1 % drops,suspension 1 drp ophthalmic (eye) QID losartan 100 mg tablet 100 mg PO DAILY Qty: 90 3RF hydrochlorothiazide 25 mg tablet 25 mg PO DAILY Qty: 90 4RF Discharge Instructions Stand Alone Forms: Alexsi Win Finger Release Referrals: Kareem Espinoza MD [ [facility] STAFF PHYSICIAN] - Activity:: Activity as Tolerated Remove Dressings/Wound Care:: 48 hours Shower/Bathe:: 48 hours Diet:: As Tolerated Discharge Orders Discharge Orders: Discharge Order (Routine); Ordered 11/03/23 Ordered By: Arsenio Hassan DS: Diagnosis Discharge Diagnosis (1) Trigger thumb, left thumb: Status: Acute
[2023-11-03] MEDS: Lidocaine 1% Pres-Free W/EPI 1/200,000 10 ML VIAL (07:37)
[2023-11-03] MEDS: Sodium Bicarbonate 50 MEQ/50 ML VIAL (07:38)
--- NOTE | 2023-11-03 07:51 | ROE_ITS ---
Date of service: 11/03/23 Time of Service: 07:30 Operative Note Operative Note DATE OF PROCEDURE: 11/03/23 PRE-OP DIAGNOSIS: Left Thumb Trigger Finger POST-OP DIAGNOSIS: same PROCEDURE: Trigger Finger Release - Left Thumb SURGEON: Kareem Espinoza ANESTHESIA TYPE: Local By Surgeon Refer to Anesthesia Record ESTIMATED BLOOD LOSS: 0 PATHOLOGY: none sent COMPLICATIONS: None Patient was transported to: same day Patient's condition: stable Indications: I have seen Reva in clinic for symptoms of a trigger finger. The catching, clicking, locking, and pain limited function. The diagnosis of trigger finger was evident. The symptoms had not responded to conservative measures. I discussed trigger finger release with the patient. I reviewed the risks of the procedure to include, but not limited to, bleeding, infection, pain, stiffness, incomplete release, damage to nerves or vessels, continued catching, recurrence. Despite these risks, the patient elected to proceed. Findings: There was a tightened A1 maggy which was released. The flexor tendon was inspected and the patient was able to move the finger without any catching, clicking, or locking. There was some fraying of the flexor tendon Procedure Description: Reva was greeted in the preoperative holding area where the correct side was identified and marked. The consent was reviewed with the patient and signed. All questions were answered. She was taken back to the operating room. The patient was placed into the supine position on the operating room table with the left arm on an arm board. All bony prominences were well padded. No prophylactic antibiotics were adm inistered since this was a clean, elective hand surgical case. The left arm was then prepped with Chloraprep and draped in a standard fashion with stockinette and extremity drape. A timeout to confirm correct identity, side and site, procedure, allergies, anesthesia, and medical concerns was performed. The surgical site was marked as a longitudinal incision directly over the A1 maggy of the involved digit. This was confirmed with palpation during finger flexion. This area, overlying the metacarpal head, was then anesthetized with 1% Lidocaine with Epinephrine and buffered with sodium bicarbonate. The patient tolerated this well and once the anesthetic had setup, the procedure began. A longitudinal incision was made through skin only, approximately 1cm. The deep tissues were dissected bluntly. Once the A1 maggy and flexor tendons were identified the soft tissue including neurovascular structures were retracted medially and laterally. There were no crossing structures over the A1 maggy. The proximal edge of the maggy was identified and the maggy was incised with tenotomy scissors. There was a release of the tendons once this was fully released. The tendons were then removed from the wound and inspected. There was some minor fraying of the tendon. The tendon was then returned and the patient was asked to move the finger into deep flexion and back to extension. There was no recreation of the pre-operative symptoms. The hand was then once more inspected for any A0 maggy or area of possible constriction. The wound was then irrigated and the skin was closed with a 4-0 Nylon. This was dressed with gauze and a Conform dressing. The patient tolerated the procedure well and was returned to the Same Day Surgery area in a stable condition suffering no known complication.
[2023-11-03 07:55] VITALS: BP 162/80; PULSE 65; RESP 16; TEMP 36.2; O2SAT 99
== END 2023-11-03 08:33 | disposition home or self-care (01) ==
PROVIDERS: PCP Family Medicine; Visit Provider Student in an Organized Health Care Education/Training Program
PROC: (CPT 26055; principal; 2023-11-03 07:30)
DX: M65.312 Trigger thumb, left thumb (principal)
CPT/HCPCS: 26055; J2004

== ENCOUNTER → 2023-11-05 11:26 | Outpatient (BNVA) | payer MEDICARE, BC, SELFPAY | PROVIDERS: PCP Family Medicine; Referring Provider Family Medicine; Visit Provider Physical Therapy Assistant | DX: Z12.11 Encounter for screening for malignant neoplasm of colon (principal); Z86.010 Personal history of colon polyps; Z80.0 Family history of malignant neoplasm of digestive organs ==

== ENCOUNTER → 2023-11-13 09:25 | Outpatient (BNVA) | payer MEDICARE, BC, SELFPAY | PROVIDERS: PCP Family Medicine; Referring Provider Family Medicine | DX: Z47.89 Encounter for other orthopedic aftercare (principal); M65.312 Trigger thumb, left thumb ==

== ENCOUNTER 2023-11-19 08:21 | Day surgery (SDC) | payer MEDICARE, BC, SELFPAY ==
[2023-11-19 08:43] VITALS: BP 110/79; PULSE 82; RESP 16; TEMP 36; O2SAT 95
[2023-11-19] MEDS: Lactated Ringers 1,000 ML 80 ML IV (08:55)
--- NOTE | 2023-11-19 09:23 | W.COLOREPORT ---
Date of service: 11/19/23 Time of Service: 09:28 Colonoscopy Report Procedure Description: PROCEDURES PERFORMED: 1. Colonoscopy PREOPERATIVE DIAGNOSIS: Surveillance colonoscopy, adenomatous polyps, family history POSTOPERATIVE DIAGNOSIS: Sigmoid diverticulosis, grade 1 internal hemorrhoids SURGEON: Wilber Davison MD INDICATION for procedure: The patient is a 78-year-old woman who has no symptoms. Her last colonoscopy was 5 years ago and tubular adenomatous polyps were found and removed. There is a family history of colon cancer in her grandmother. Her own mother had colon problems that ended up with an ostomy but she is not sure what these were. FINDINGS: No new polyps were found. I carefully inspected the cecum and ascending colon a couple of different times and there were no polyps or evidence of regrowth of the prior polyps. No polyps anywhere else in the colon. She has moderate diverticular disease in the sigmoid colon with some degree of fibrosis but no focal stricture. Minimal grade 1 internal hemorrhoids noted. SURVEILLANCE interval/FOLLOW-UP: Previous polyps were simple adenomas. There were no new polyps this time. I think another colonoscopy could be considered in 7 years, at the age of 86, if she is still healthy and has a good life expectancy at that time. SPECIMENS: None EBL: Minimal COMPLICATIONS: None QUALITY of prep: Excellent Procedure in detail: The patient gave written consent and was in agreement with the indications, the potential risks as well as the benefits of the procedure. They were taken to the endoscopy suite and laid in the left lateral decubitus position. A timeout was performed and anesthesia was administered which was tolerated well. I started the procedure. Digital rectal and visual examination was performed and grossly within normal limits. A well-lubricated flexible colonoscope was then introduced and passed without any notable difficulty all the way to the cecum identified by the ileocecal valve and the appendiceal orifice. The scope was then slowly withdrawn with the above-noted findings. The patient tolerated the procedure well and was taken to the PACU in hemodynamically stable condition.
--- NOTE | 2023-11-19 09:28 | W.PM.DSUDISC ---
Date of service: 11/19/23 Time of Service: 09:29 Discharge Plan Disposition Patient Disposition: Home Condition: Good Discharge Details Attending Provider: Waqar Davison Primary Care Provider: Sandrine Dolan Home Meds and New Rx's Prescriptions: No Action albuterol sulfate 90 mcg/actuation HFA aerosol inhaler 2 inh IH Q4H PRN (Reason: bronchospasm) Qty: 8.5 4RF polyethylene glycol 3350 17 gram/dose powder 17 g PO ONCE Qty: 238 0RF Rx Instructions: Take per colonoscopy instructions provided by ordering providers office prednisolone acetate 1 % drops,suspension 1 drp ophthalmic (eye) QID losartan 100 mg tablet 100 mg PO DAILY Qty: 90 3RF hydrochlorothiazide 25 mg tablet 25 mg PO DAILY Qty: 90 4RF bisacodyl [Dulcolax (bisacodyl)] 5 mg tablet,delayed release (DR/EC) 5 mg PO ONCE Qty: 4 0RF Rx Instructions: Take per colonoscopy instructions provided by ordering providers office acetaminophen 500 mg tablet 1,000 mg PO TID Qty: 90 0RF ibuprofen 600 mg tablet 600 mg PO TID PRN (Reason: pain) Qty: 90 0RF Discharge Instructions Additional Instructions: FINDINGS: No new polyps found this time. Everything else looks healthy. You do have diverticulosis in your sigmoid colon but this has been seen on prior colonoscopies and is nothing new. This is a very common, benign condition and nothing needs to be done about it. You may not need to do another colonoscopy ever again. I would recommend considering another colonoscopy at the age of 86 if you are still healthy with a good life expectancy at that time. Make that decision then. Activity:: Activity as Tolerated Diet:: As Tolerated
--- NOTE | 2023-11-19 09:30 | W.ANESPRE ---
General Info Date of Service Date Performed: 11/19/23 Height: 5 ft 5 in Weight: 77.9 kg Body Mass Index (BMI): 28.5 Surgical Procedure: Operation Date: 11/19/23 09:50 Proposed Procedure Side Surgeon p Colonoscopy Waqar Davison MD Actual Procedure Side Surgeon p Colonoscopy Not Applicable Waqar Davison MD Meds Allergies and Home Medications Allergies Allergy/AdvReac Type Severity Reaction Status Date / Time metronidazole Allergy Unknown unknown Verified 11/19/23 08:40 tetanus and diphtheria AdvReac Unknown BECOMES Verified 11/19/23 08:40 toxoids ILL; HIGH FEVER gabapentin AdvReac felt out Verified 11/19/23 08:40 of it gluten AdvReac bloating Verified 11/19/23 08:40 dust and mold Allergy unknown Uncoded 11/19/23 08:40 FOOD STARCH AdvReac Mild CANNOT Uncoded 11/19/23 08:40 NAME THEM ALL GRAIN AdvReac Mild BLOATING Uncoded 11/19/23 08:40 Home Medication Medication Instructions Recorded albuterol sulfate 90 mcg/actuation 2 inh inhalation Q4H PRN 02/26/23 aerosol inhaler bronchospasm #8.5 grams hydrochlorothiazide 25 mg tablet 25 mg PO DAILY #90 tabs 06/30/23 losartan 100 mg tablet 100 mg PO DAILY #90 tabs 06/30/23 prednisolone acetate 1 % eye 1 drp ophthalmic (eye) QID 06/30/23 drops,suspension acetaminophen 500 mg tablet 1,000 mg (2 x 500 mg) PO TID #90 11/03/23 tabs ibuprofen 600 mg tablet 600 mg PO TID PRN pain #90 tabs 11/03/23 polyethylene glycol 3350 17 17 g PO ONCE #238 grams 11/05/23 gram/dose oral powder bisacodyl 5 mg tablet,delayed 5 mg PO ONCE #4 tabs 11/16/23 release (Dulcolax (bisacodyl)) Current Visit Medications: Current Medications Generic Name Dose Route Start Last Admin Trade Name Freq PRN Reason Stop Dose Admin Ringer's Solution 1,000 mls @ 80 mls/hr 11/19/23 06:00 11/19/23 08:55 IV 11/19/23 23:59 80 mls/hr INFUSION JEMAL Administration IV Miscellaneous Supplies 1 each 11/19/23 06:00 Iv Access IV 11/19/23 23:59 DIRECTED JEMAL Sodium Chloride 0 ml 11/19/23 06:00 Normal Saline Flush 10 Ml Syr IV 11/19/23 23:59 PRN PRN Sodium Chloride 0 ml 11/19/23 06:00 Normal Saline 10 Ml Vial IJ 11/19/23 23:59 DIRECTED PRN Sterile Water 0 ml 11/19/23 06:00 Water,Injection,Sterile 10 Ml Vial IJ 11/19/23 23:59 DIRECTED PRN PFSH Active Problems Active Problems: Problem Status Onset Code Periocular dermatitis L30.9 Environmental allergies Z91.09 Thumb pain M79.646 Nasal dryness J34.89 Hypertension I10 Allergies T78.40XA Mass in neck R22.1 Degenerative joint disease of right knee M17.11 Defect of lacrimal duct H04.9 Pure hypercholesterolemia E78.00 Pelvic floor dysfunction M62.89 Urinary urgency R39.15 Lumbar stenosis M48.061 Tubular adenoma of colon ~09/20/18 D12.6 Esophagitis ~09/20/18 K20.9 Gastritis and duodenitis ~09/20/18 K29.90 GERD (gastroesophageal reflux disease) K21.9 Synovial cyst of lumbar facet joint 04/08/17 M71.38 Sleep apnea 08/19/17 G47.30 Neuropathy 01/06/17 G62.9 Knee pain M25.569 Insomnia G47.00 Dupuytren's contracture of hand 04/22/16 M72.0 Diverticulitis of colon K57.32 Chronic rhinitis 12/12/15 J31.0 Asthma J45.909 Acute right-sided low back pain with right-sided sciatica 02/11/17 M54.41 Medical History Medical History Clostridium difficile infection (Unknown) Chest pain Pt. states it didn't amount to anything, it was anxiety Weight loss Other specified bacterial agents as the cause of diseases classified elsewhere Clostridium difficile infection; several months Dysfunctional uterine bleeding s/p hysterctomy at age 51 Lateral epicondylitis Ulcerative colitis Trochanteric bursitis of right hip (09/17/16) Renal and ureteric calculus (02/12/17) Rash (12/03/17) Postnasal drip (12/12/15) Low back pain, non-specific DISC Lateral epicondylitis Internal derangement of right knee (09/17/16) Impaired renal function (11/28/13) Impaired glucose tolerance (11/28/13) NORMAL A1C Grief at loss of child (11/10/16) Generalized osteoarthrosis HANDS/TOES Dizzy (09/06/15) Disorder of elbow in adult soft tissue mass Depressive disorder Cervical spondylosis Surgical History Surgical History Trigger thumb, left thumb S/P Release: 11/03/2023 S/P colonoscopy (~09/20/18) S/P tonsillectomy and adenoidectomy History of bladder surgery H/O arthroscopy of knee B/L S/P laparoscopic hysterectomy 06/29/97 DUB Tonsillectomy and adenoidectomy AGE 9 Hysterectomy, Laproscopic (~1997) dub Colonoscopy - MAC (~2006) 2019- 3 tubular adenomas Bladder Surgery Arthroplasty of knee b/l patient reports arthroscopic only Tobacco Smoking/Tobacco Use Status: Former Tobacco Use Passive smoking exposure: No Second hand exposure: Yes (as a child) Alcohol Alcohol Intake: current Alcohol intake frequency: a few times a week Alcohol type: wine Substance Use Substance use: Rarely Substance use type: does not use and painkillers Vital Signs and Lab Results Vital Signs Most Recent Vital Signs in EMR: Most Recent Vital Signs Temp Pulse Resp BP Pulse Ox 36 C L 82 16 110/79 95 11/19/23 08:43 11/19/23 08:43 11/19/23 08:43 11/19/23 08:43 11/19/23 08:43 Lab Results Blood Type / Crossmatch: No Data to Display Complete Blood Count: No Data to Display Complete Metabolic Panel: No Data to Display Liver Function Panel: No Data to Display Coagulation Panel: No Data to Display Cardiac Panel: No Data to Display Arterial Blood Gas: No Data to Display Venous Blood Gas: No Data to Display Pancreas Panel: No Data to Display Thyroid Panel: No Data to Display Infectious Disease: No Data to Display Blood Cultures: No Data to Display Toxicology Panel: No Data to Display Anesthesia Assessment and Plan Anesthesia History Personal History: No History of Anesthesia Complications Family History: No Family History of Anesthesia Complications Exercise Tolerance Exercise Tolerance: Metabolic Equivalents<4 Pertinent Negatives Pertinent Negatives: No Symptoms of GERD, No Major Cardiovascular Symptoms or Complaints, No Major Pulmonary Symptoms or Complaints and No History of CVA/TIA Cardiac & Pulmonary Exam Cardiac Exam: Normal S1/S2 Heart Sounds Pulmonary Exam: Clear Bilateral Breath Sounds Implantable Cardiac Device Does patient have a Pacemaker or an ICD?: No Airway Exam Known Difficult Airway: No Mallampati Class: 1 Mouth Opening: Normal (> 3cm) Thyromental Distance: Greater than 3 cm Neck Range of Motion: Limited ROM (arthritic bone spurs) Neck Circumference: Normal Teeth Condition: Normal Dentition ASA Classification ASA Score: ASA 3 Emergency Case?: No NPO Status NPO Status: NPO Clears >2 hours, Solids >8 hours Anesthesia Plan Resuscitation Status: Full Code Anesthesia Technique: General Anesthesia Airway Planned: Natural Airway Monitors Used: Standard Monitors Preoperative Comments:: 78 y/o female with history of HTN, GERD and sleep apnea presents for colonoscopy screening pre-op. Her last screening was in 2019, which was remarkable for tubular adenoma. She has a family history of colon cancer in her maternal grandmother
[2023-11-19 09:31] VITALS: BMI 28.5
[2023-11-19 10:06] VITALS: BP 107/61; PULSE 71; RESP 16; TEMP 36.6; O2SAT 93
--- NOTE | 2023-11-19 10:15 | W.ANESPOSTOP ---
Postoperative Evaluation Date, Time and Location Date Performed: 11/19/23 Time Performed: 10:15 Patient Location: Day Surgery Unit Vital Signs Most Recent Imported Vital Signs: Most Recent Vital Signs Temp Pulse Resp BP Pulse Ox 36.6 C 71 16 107/61 93 11/19/23 10:06 11/19/23 10:06 11/19/23 10:06 11/19/23 10:06 11/19/23 10:06 Pain Score Most Recent Pain Score: Most Recent Pain Score Pain Level 0 11/19/23 10:06 Assessment Mental Status: Awake (Alert & Oriented to Patient Baseline) Airway and Respiratory Function: Patent airway with normal (patient baseline) respiratory exam Cardiovascular Function: Hemodynamically Stable Hydration Status: Adequately Hydrated Nausea & Vomiting: No Nausea or Vomiting Pain: Pt. Denies Any Pain Peripheral Nerve Block: Patient did not receive a nerve block
[2023-11-19 10:21] VITALS: BP 110/73; PULSE 65; RESP 16; TEMP 36.6; O2SAT 98
== END 2023-11-19 11:05 | disposition home or self-care (01) ==
PROVIDERS: PCP Family Medicine; Visit Provider Student in an Organized Health Care Education/Training Program
PROC: 0DJD8ZZ Inspection of Lower Intestinal Tract, Via Natural or Artificial Opening Endoscopic (ICD-10-PCS; CPT 45378; principal; 2023-11-19 09:45)
DX: Z12.11 Encounter for screening for malignant neoplasm of colon (principal); Z80.0 Family history of malignant neoplasm of digestive organs; K57.30 Diverticulosis of large intestine without perforation or abscess without bleeding; K64.0 First degree hemorrhoids
CPT/HCPCS: G0105; 00123; J2001; J2704

== ENCOUNTER → 2024-01-07 09:58 | Outpatient (BNVA) | payer MEDICARE, BC, SELFPAY | PROVIDERS: PCP Family Medicine; Referring Provider Family Medicine | DX: Z47.89 Encounter for other orthopedic aftercare (principal); L90.5 Scar conditions and fibrosis of skin ==

== ENCOUNTER 2024-04-19 16:01 | Emergency (ER) | payer MEDICARE, BC, SELFPAY ==
--- NOTE | 2024-04-19 16:00 | RT.EKG_ITS ---
APPROVED REPORT Exam: Resting ECG Reason for Exam: CP/SOB Patient Location: E HR:78 bpm ECG Measurements Heart Rate 78 AXIS PA 134 P 112 QRSd 76 QRS -17 QT 364 T 98 QTc 415 Conclusion Sinus rhythm 78 normal axis no stemi
[2024-04-19 16:10] VITALS: BP 160/90; PULSE 84; RESP 18; TEMP 36.6; O2SAT 96
[2024-04-19 16:16] VITALS: BP 160/90; PULSE 84; RESP 18; TEMP 36.6; O2SAT 96
[2024-04-19 16:23] VITALS: PULSE 93
--- NOTE | 2024-04-19 16:27 | W.ED.GENAD ---
Discharge Plan Disposition Patient Disposition: Home Condition: Stable Discharge Details Clinical Impression: Shortness of breath on exertion, Chest pain Primary Care Provider: Sandrine Dolan ED Provider: Tish Toribio Home Meds and New Rx's Prescriptions: No Action albuterol sulfate 90 mcg/actuation HFA aerosol inhaler 2 inh IH Q4H PRN (Reason: bronchospasm) Qty: 8.5 4RF prednisone 20 mg tablet See Rx Instructions PO DAILY Qty: 22 0RF Rx Instructions: 2 tabs daily for 6 days; 1 tab daily for 6 days; 0.5 tab daily for 8 days prednisolone acetate 1 % drops,suspension 1 drp ophthalmic (eye) QID losartan 100 mg tablet 100 mg PO DAILY Qty: 90 3RF hydrochlorothiazide 25 mg tablet 25 mg PO DAILY Qty: 90 4RF acetaminophen 500 mg tablet 1,000 mg PO TID Qty: 90 0RF ibuprofen 600 mg tablet 600 mg PO TID PRN (Reason: pain) Qty: 90 0RF Discharge Instructions Instructions: Chest Pain, Adult ED, Shortness of Breath, Adult ED Additional Instructions: CT shows no evidence of blood clot. You do have a small nodule on your adrenal gland and need to follow-up with this with your PCP. No evidence of pneumonia or fluid in your lungs. No evidence of heart attack today. No evidence of congestive heart failure. Follow up with primary care provider in 3-5 days. Return to ED sooner if any worsening or concerns. Please increase oral fluids. Please take Tylenol or Ibuprofen with food every 4-6 hours as needed for pain and swelling. Referrals: Sandrine Dolan MD, [place] [Primary Care Provider] - 3 days HPI General Mode of arrival: ambulatory. Date/Time Provider Initiated Documentation: 04/19/24 16:18. Limitations to Documentation: no limitations. Information obtained by: patient, RN notes reviewed and old records reviewed. HPI Narrative: 78 year old female presents to the ER with cc of SOB, worse with exertion, over the last week. Intermittent left sided pin point chest pain also worse with exertion. Reports hx of Asthma and is just finishing a round of Azithromycin and prednisone which has not helped her symptoms. PMHX includes Asthma, Depression, HTN, . Denies lower extremity swelling, productive cough, fever or any other associated symptoms. Related Data Home Medications ?Medication ?Instructions ?Recorded ?Confirmed hydrochlorothiazide 25 mg tablet 25 mg PO DAILY #90 tabs 06/30/23 04/19/24 losartan 100 mg tablet 100 mg PO DAILY #90 tabs 06/30/23 04/19/24 prednisolone acetate 1 % eye 1 drp ophthalmic (eye) QID 06/30/23 04/19/24 drops,suspension acetaminophen 500 mg tablet 1,000 mg (2 x 500 mg) PO TID #90 11/03/23 04/19/24 tabs ibuprofen 600 mg tablet 600 mg PO TID PRN pain #90 tabs 11/03/23 04/19/24 albuterol sulfate 90 mcg/actuation 2 inh inhalation Q4H PRN 03/24/24 04/19/24 aerosol inhaler bronchospasm #8.5 grams prednisone 20 mg tablet See Rx Instructions PO DAILY #22 03/24/24 04/19/24 tabs Previous Rx's ?Medication ?Instructions ?Recorded hydrochlorothiazide 25 mg tablet 25 mg PO DAILY #90 tabs 06/30/23 losartan 100 mg tablet 100 mg PO DAILY #90 tabs 06/30/23 acetaminophen 500 mg tablet 1,000 mg (2 x 500 mg) PO TID #90 11/03/23 tabs ibuprofen 600 mg tablet 600 mg PO TID PRN pain #90 tabs 11/03/23 albuterol sulfate 90 mcg/actuation 2 inh inhalation Q4H PRN 03/24/24 aerosol inhaler bronchospasm #8.5 grams prednisone 20 mg tablet See Rx Instructions PO DAILY #22 03/24/24 tabs Allergies Allergy/AdvReac Type Severity Reaction Status Date / Time metronidazole Allergy Unknown unknown Verified 04/19/24 16:15 tetanus and diphtheria AdvReac Unknown BECOMES Verified 04/19/24 16:15 toxoids ILL; HIGH FEVER gabapentin AdvReac felt out Verified 04/19/24 16:15 of it gluten AdvReac bloating Verified 04/19/24 16:15 dust and mold Allergy unknown Uncoded 04/19/24 16:15 FOOD STARCH AdvReac Mild CANNOT Uncoded 04/19/24 16:15 NAME THEM ALL GRAIN AdvReac Mild BLOATING Uncoded 04/19/24 16:15 General Stated Complaint: RespSymp АННА: 3 Review of Systems All systems reviewed & are unremarkable except as noted in HPI and below Cardiovascular Cardiovascular: Reports chest pain, Reports dyspnea and Reports dyspnea on exertion Respiratory Respiratory: Reports dyspnea and Reports dyspnea on exertion Exam Narrative Exam Narrative: Constitutional: Alert and oriented x3. Appears stated age. Normal body habitus. Head: Normocephalic, no trauma. Eyes: Pupils PERRL, Red reflex noted, EOM's intact. Eyelids symmetrical without lesions, discharge, or swelling. ENT: Bilateral TM's WNL, External ear normal to inspection, no mastoid TTP, swelling, or erythema, Nasal turbinates WNL, no nasal discharge. Normal dentition, Posterior pharynx WNL, no exudate. Chest: RRR, Normal S1, S2, distal pulses intact. Resp: Lungs clear to auscultation bilaterally, no wheezes, rales, or rhonchi. Abdomen: Soft, non-distended, Normoactive bowel sounds all 4 quads. Musculoskeletal: Normal gait, Moves all 4 extremities without difficulty. Skin: No suspicious rashes or lesions. Capillary refill less than 2 sec. Neurologic: Cranial nerves II-XII intact. Alert and oriented x 3. Motor: No deficits noted. Sensory: Intact bilaterally all 4 extremities. Hematologic/Lymphatic: No ecchymosis, no lymphadenopathy. Course Vital Signs Vital signs: Vital Signs Temperature 36.6 C 04/19/24 16:10 Pulse 84 04/19/24 16:10 Respiratory Rate 18 04/19/24 16:10 Blood Pressure 160/90 H 04/19/24 16:10 Pulse Oximetry 96 04/19/24 16:10 Temperature 36.6 C 04/19/24 16:16 Temperature Source Oral 04/19/24 16:16 Pulse 84 04/19/24 16:16 Respiratory Rate 18 04/19/24 16:16 Respiratory Effort Normal, Non-Labored 04/19/24 16:16 Blood Pressure 160/90 H 04/19/24 16:16 Blood Pressure Position Sitting 04/19/24 16:16 Pulse Oximetry 96 04/19/24 16:16 Oxygen Delivery Method Room Air 04/19/24 16:16 Oxygen Flow Rate 0 04/19/24 16:16 Medical Decision Making 78 year old female presents to the ER with cc of SOB, worse with exertion, over the last week. Intermittent left sided pin point chest pain also worse with exertion. Reports hx of Asthma and is just finishing a round of Azithromycin and prednisone which has not helped her symptoms. PMHX includes Asthma, Depression, HTN, . Denies lower extremity swelling, productive cough, fever or any other associated symptoms. Work up ordered including CBC, CMP, Troponin, Fluvid and CTA chest to rule out PE. Differential diagnosis includes but limited to CT, PE, pneumonia, viral illness, musculoskeletal strain, COPD, worsening asthma, CHF. EKG was reviewed by Dr. Gomez ER attending, old EKG available for review, see official report. Labs are largely unremarkable no elevated white blood cell count, troponin within normal limits, proBNP 112. CT shows no evidence of PE there is a small nodule within the adrenal gland small adrenal adenoma. Will encourage follow-up with that. No evidence of pneumonia or infiltration. Patient has been requesting to be discharged. Will discharge home with follow-up with PCP. Medical Records Medical records reviewed: Yes I reviewed the patient's medical records. Imaging Data Radiologic Study: Imaging: CT Scan Radiologist's impression: FINDINGS: Tracheobronchial tree: Patent where visualized. No bronchiectasis. Pulmonary parenchyma: No consolidation or dominant measurable mass. No architectural distortion. There is a calcified granuloma in the right lower lobe. Pulmonary Arteries: No evidence of filling defect to suggest pulmonary emboli. Mediastinum and Torrie: No dominant adenopathy or fluid collection. The esophagus is unremarkable. Visualized thyroid gland: Unremarkable. Pleura: No effusion or pneumothorax. Heart: The heart is not dilated. Coronary artery calcifications are present. No pericardial effusion. Aorta: Thoracic aorta non-dilated. No evidence of dissection. Atherosclerotic calcification is present Upper abdomen: There is a small nodule associated with the right adrenal gland. This likely reflects a small adrenal adenoma. No follow-up is recommended. Soft tissues: Unremarkable. Bones: Within normal limits for the patient's age. IMPRESSION: 1. No evidence of pulmonary embolism, thoracic aortic dissection or aneurysm. 2. No acute pulmonary process. Lab Data Lab results reviewed: Yes I reviewed the patient's lab results. Labs: Laboratory Tests Range/Units 04/19/24 04/19/24 04/19/24 16:42 17:19 19:19 WBC (4.4-10.8) 10^3/uL 7.68 RBC (3.93-5.22) 10^6/uL 4.57 Hgb (11.2-15.7) g/dL 13.8 Hct (36.0-46.0) % 41.0 MCV (80-95) fL 90 MCH (27.0-33.0) pg 30.2 MCHC (32.0-36.0) % 33.7 RDW (11.7-14.6) % 12.7 Plt Count (130-400) 10^3/uL 204 MPV (8.0-11.0) fL 10.9 Immature Gran % % 0.4 Neutrophils % % 66.6 Lymphocytes % % 24.6 Monocytes % % 6.3 Eosinophils % % 1.6 Basophils % % 0.5 Nucleated RBC % (0.0-0.3) % 0.0 Absolute Neutrophils (1.2-6.7) 10^3/uL 5.12 Absolute Lymphocytes (1.2-3.4) 10^3/uL 1.89 Absolute Monocytes (0.1-0.8) 10^3/uL 0.48 Absolute Eosinophils (0.0-0.7) 10^3/uL 0.12 Absolute Basophils (0.0-0.2) 10^3/uL 0.04 Sodium (136-145) mmol/L 143 Potassium (3.5-5.1) mmol/L 4.3 Chloride (98-107) mmol/L 108 H Carbon Dioxide (21.0-32.0) mmol/L 26.8 Anion Gap (3-11) mmol/L 8.2 BUN (7-18) mg/dL 25 H Creatinine (0.55-1.02) mg/dL 1.3 H Est GFR (CKD-EPI 2020) (mL/min/1.73m2) 42.35 Glucose (74-106) mg/dL 125 H Calcium (8.5-10.1) mg/dL 9.0 Total Bilirubin (0.2-1.0) mg/dL 0.48 AST (15-37) U/L 19 ALT (14-59) U/L 36 Alkaline Phosphatase (46-116) U/L 82 Troponin I (<or=51) ng/L 5 Cancelled Cancelled NT-Pro-B Natriuret Pep (<300) pg/mL 112 Total Protein (6.4-8.2) g/dL 7.0 Albumin (3.4-5.0) g/dL 3.9 COVID-19 Source Nasopharynx SARS-CoV-2 (PCR) (Negative) Negative Influenza Type A (PCR) (Negative) Negative Influenza Type B (PCR) (Negative) Negative RSV (PCR) (Negative) Negative Quality:SDOH Health Related Social Needs: No Data to Display PFSH All Active Problems (Updated 04/19/24 @ 18:32 by Tish Toribio NP) Chest pain (Acute) Shortness of breath on exertion (Acute) Periocular dermatitis (Acute) Environmental allergies (Acute) Thumb pain (Acute) Nasal dryness (Acute) Hypertension (Chronic) Allergies (Acute) Mass in neck (Acute) Degenerative joint disease of right knee (Acute) Defect of lacrimal duct (Acute) Pure hypercholesterolemia (Acute) Pelvic floor dysfunction (Acute) Urinary urgency (Acute) Lumbar stenosis (Acute) Tubular adenoma of colon (Acute ~09/20/18) Esophagitis (Acute ~09/20/18) Gastritis and duodenitis (Acute ~09/20/18) GERD (gastroesophageal reflux disease) (Chronic) Synovial cyst of lumbar facet joint (Chronic 04/08/17) Sleep apnea (Chronic 08/19/17) CPAP Neuropathy (Chronic 01/06/17) Insomnia (Chronic) Dupuytren's contracture of hand (Chronic 04/22/16) Diverticulitis of colon (Chronic) 2006 COLONOSCOPY: DIVERTICULITIS/COLITIS Chronic rhinitis (Chronic 12/12/15) Asthma (Chronic) severe does not use meds as prescribed Acute right-sided low back pain with right-sided sciatica (Acute 02/11/17) Medical History Clostridium difficile infection (Unknown) Chest pain Pt. states it didn't amount to anything, it was anxiety Weight loss Other specified bacterial agents as the cause of diseases classified elsewhere Clostridium difficile infection; several months Dysfunctional uterine bleeding s/p hysterctomy at age 51 Lateral epicondylitis Ulcerative colitis Trochanteric bursitis of right hip (09/17/16) Renal and ureteric calculus (02/12/17) Rash (12/03/17) Postnasal drip (12/12/15) Low back pain, non-specific DISC Lateral epicondylitis Internal derangement of right knee (09/17/16) Impaired renal function (11/28/13) Impaired glucose tolerance (11/28/13) NORMAL A1C Grief at loss of child (11/10/16) Generalized osteoarthrosis HANDS/TOES Dizzy (09/06/15) Disorder of elbow in adult soft tissue mass Depressive disorder Cervical spondylosis Surgical History Trigger thumb, left thumb S/P Release: 11/03/2023 S/P colonoscopy (~10/2023) 2019 S/P tonsillectomy and adenoidectomy History of bladder surgery H/O arthroscopy of knee B/L S/P laparoscopic hysterectomy 06/29/97 DUB Tonsillectomy and adenoidectomy AGE 9 Hysterectomy, Laproscopic (~1997) dub Colonoscopy - MAC (~2006) 2019- tubular adenomas Bladder Surgery Arthroplasty of knee b/l patient reports arthroscopic only Family History Mother , age 72 Colon cancer Depression Heart disease Brother Depression Smoker COPD (chronic obstructive pulmonary disease) Maternal Grandfather , age 94 Heart disease Paternal Grandfather , age 72 Heart disease Maternal Grandmother , age 30 Stroke Cancer Paternal Grandmother , age 75 Cancer Son , age 47 Asthma Alcohol abuse Depression Son Hyperlipidemia Son Adrenal insufficiency Father , age 50 No problems noted. Daughter , age 17 No problems noted. Social History Smoking/Tobacco Use Status: Former Tobacco Use tobacco type: cigarettes Quit Date: 06/29/65 Tobacco: How many years used: 5 Second Hand Exposure: Yes (as a child) Smoking risk assessment performed?: Yes Alcohol Intake: current Alcohol Intake frequency: a few times a week Alcohol type: wine Drug use: Rarely Substance use type: does not use and painkillers Adopted: No Caregiver/Support person: No Household members: none Housing: house Number of Children: 1 number of grandchildren: 3 Communication Needs: Corrective Lenses Education Level: high school Do you need help understanding health information?: Rarely 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 Pets and animals: Yes Pets and animals: cat(s) Sexually active: No Do you think of yourself as: straight/heterosexual Current gender identity: female What is your relationship status?: How often do you talk on the phone with friends or family?: twice per week How often do you get together with friends or relatives?: once per week How often do you attend confucianism or latter-day services?: 1-3 times per year Do you belong to any clubs or organized social groups?: no Panel score (0-1 are the most socially isolated patients): 1 What type of physical activity do you participate in: walking Duration: < 15 minutes/day Frequency: 3-4 times per week Darline/Confucianist: Non catholic Special darline needs: No Seatbelt use: always Helmet use: No Drive intox or ride w/intox driver medic: No Firearms in home: Yes Firearms unloaded and locked: Yes Do you feel safe at home: Yes Do you feel safe in your relationship?: Yes Victim of physical abuse: No Victim of emotional abuse: No Victim of sexual abuse: No Would you like helpful sources: No Additional Social history: lives alone PAWSS Have you Been Recently Intoxicated or Drunk Within the Last 30 days?: No Have you Ever Experienced Previous Episodes of Alcohol Withdrawal?: No Have you ever Experienced Withdrawal Seizures?: No Have you ever Experienced Delirium Tremens(DT)s?: No Have you ever undergone Alcohol Rehabilitation Treatment (i.e, inpt ot outpatient treatment programs)?: No Have you ever Experienced Blackouts?: No Have you ever Combined Alcohol with other Downers within the last 90 days?: No Have you ever Combined Alcohol with any other Substance of Abuse during the last 90 days?: No Positive Blood Alcohol level on Presentation? [PCS.BAL]: No Evidence of Increased Autonomic Activity (i.e. HR>120, tremor, sweating, agitation, nausea)?: No Result: 0
[2024-04-19 16:51] LABS: Abs Immature Grans 0.03 10^3/uL (0.0-0.06); Absolute Basophil Count 0.04 10^3/uL (0.0-0.2); Absolute Eosinophil Count 0.12 10^3/uL (0.0-0.7); Absolute Lymphocyte Count 1.89 10^3/uL (1.2-3.4); Absolute Monocyte Count 0.48 10^3/uL (0.1-0.8); Absolute Neutrophil Count 5.12 10^3/uL (1.2-6.7); Basophils % 0.5 %; Eosinophils % 1.6 %; HGB 13.8 g/dL (11.2-15.7); Immature Grans % 0.4 %; Lymphocytes % 24.6 %; MCH 30.2 pg (27.0-33.0); MCHC 33.7 % (32.0-36.0); MCV 90 fL (80-95); MPV 10.9 fL (8.0-11.0); Monocytes % 6.3 %; Neutrophils % 66.6 %; Platelet Count 204 10^3/uL (130-400); RBC 4.57 10^6/uL (3.93-5.22); RDW 12.7 % (11.7-14.6); RDW-SD 41.8 fL; WBC 7.68 10^3/uL (4.4-10.8)
[2024-04-19 17:12] LABS: ALT 36 U/L (14-59); AST 19 U/L (15-37); Albumin 3.9 g/dL (3.4-5.0); Alkaline Phosphatase 82 U/L (46-116); Anion Gap 8.2 mmol/L (3-11); BUN 25 mg/dL (7-18); Bilirubin, Total 0.48 mg/dL (0.2-1.0); CO2 26.8 mmol/L (21.0-32.0); CREATININE 1.3 mg/dL (0.55-1.02); Chloride 108 mmol/L (98-107); Estimated GFR 42.35 (mL/min/1.73m2); Glucose 125 mg/dL (74-106); NT-proBNP 112 pg/mL (<300); Potassium 4.3 mmol/L (3.5-5.1); Sodium 143 mmol/L (136-145); Troponin I 5 ng/L (<or=51)
[2024-04-19 17:34] LABS: COVID-19 PCR Negative (Negative); Influenza A PCR Negative (Negative); Influenza B PCR Negative (Negative); RSV PCR Negative (Negative)
[2024-04-19 17:36] LABS: Source Nasopharynx
[2024-04-19] MEDS: Omnipaque 350 MG/ML 100 ML BTL IJ (18:13)
[2024-04-19] MEDS: Normal Saline - Diluent 50 ML VIAL IJ (18:14)
--- NOTE | 2024-04-19 18:15 | DI.CT_ITS ---
Exam(s) CT CHEST PE CTA EXAM: CT CHEST PE CTA CLINICAL HISTORY: Left sided CP, SOB. TECHNIQUE: Imaging Protocol: Axial CT angiography was performed with multi-slice acquisition and mu lti-planar and/or 3D reconstructions. CONTRAST MATERIAL: Intravenous: Omnipaque 350 contrast volume:100 mL COMPARISON: CR XR CHEST 2V PA LATERAL from 09/10/2018 FINDINGS: Tracheobronchial tree: Patent where visualized. No bronchiectasis. Pulmonary parenchyma: No consolidation or dominant measurable mass. No architectural distortion. Ther e is a calcified granuloma in the right lower lobe. Pulmonary Arteries: No evidence of filling defect to suggest pulmonary emboli. Mediastinum and Torrie: No dominant adenopathy or fluid collection. The esophagus is unremarkable. Visualized thyroid gland: Unremarkable. Pleura: No effusion or pneumothorax. Heart: The heart is not dilated. Coronary artery calcifications are present. No pericardial effusion . Aorta: Thoracic aorta non-dilated. No evidence of dissection. Atherosclerotic calcification is presen t Upper abdomen: There is a small nodule associated with the right adrenal gland. This likely reflect s a small adrenal adenoma. No follow-up is recommended. Soft tissues: Unremarkable. Bones: Within normal limits for the patient's age. IMPRESSION: 1. No evidence of pulmonary embolism, thoracic aortic dissection or aneurysm. 2. No acute pulmonary process. RADIATION DOSE DELIVERED: 109.1mGy.cm Total DLP DATA REPOSITORY: All CT scans at this facility are submitted to the National Radiology Data Registry (NRDR) Dose Index Registry (DIR) with the [employer] (ACR). RADIATION OPTIMIZATION: All CT scans at this facility use at least one of these dose optimization te chniques: automated exposure control; mA and/or kV adjustment per patient size (includes targeted exa ms where dose is matched to clinical indication); or iterative reconstruction.
[2024-04-19 19:03] VITALS: BP 209/97; PULSE 80; RESP 16; TEMP 36.6; O2SAT 95
== END 2024-04-19 18:56 | disposition home or self-care (01) ==
PROVIDERS: Emergency Provider Registered Nurse Emergency; PCP Family Medicine
DX: R06.02 Shortness of breath (principal); R07.9 Chest pain, unspecified; E27.8 Other specified disorders of adrenal gland; E78.00 Pure hypercholesterolemia, unspecified; I10 Essential (primary) hypertension; Z87.891 Personal history of nicotine dependence
CPT/HCPCS: 36415; 71275; 80053; 87637; 93005; 99285; 83880; 84484; 85025; 93010; 99284; J3490

== ENCOUNTER 2024-05-16 08:22 | Outpatient (CLI) | payer MEDICARE, BC, SELFPAY ==
[2024-05-16 12:48] LABS: Hemoglobin A1C 5.7 % (<5.7)
[2024-05-16 13:24] LABS: ALT 43 U/L (14-59); AST 29 U/L (15-37); Albumin 4.2 g/dL (3.4-5.0); Alkaline Phosphatase 84 U/L (46-116); Anion Gap 9.8 mmol/L (3-11); BUN 25 mg/dL (7-18); Bilirubin, Total 0.67 mg/dL (0.2-1.0); CO2 26.2 mmol/L (21.0-32.0); CREATININE 1.2 mg/dL (0.55-1.02); Calcium 9.8 mg/dL (8.5-10.1); Calculated LDL 207 mg/dL (<100); Chloride 107 mmol/L (98-107); Cholesterol 298 mg/dL (<200); Estimated GFR 46.62 (mL/min/1.73m2); Glucose 109 mg/dL (74-106); HDL Cholesterol 66 mg/dL (40-60); Potassium 4.2 mmol/L (3.5-5.1); Sodium 143 mmol/L (136-145); Total Protein 7.5 g/dL (6.4-8.2); Triglyceride 129 mg/dL (<150)
== END 2024-05-16 08:23 | disposition home or self-care (01) ==
LOC: LOS 08:22
PROVIDERS: PCP Family Medicine; Visit Provider Family Medicine
DX: I10 Essential (primary) hypertension (principal); E11.9 Type 2 diabetes mellitus without complications; E27.9 Disorder of adrenal gland, unspecified; M54.50 Low back pain, unspecified
CPT/HCPCS: 36415; 80053; 80061; 83036

== ENCOUNTER 2024-05-16 12:03 | Outpatient (CLI) | payer MEDICARE, BC, SELFPAY ==
--- NOTE | 2024-05-16 09:15 | DI.RAD_ITS ---
Exam(s) XR LUMBAR SPINE COMPLETE EXAM: XR LUMBAR SPINE COMPLETE CLINICAL HISTORY: M54.50 low back pain. TECHNIQUE: 2D digital imaging was performed. Five views. COMPARISON: CR XR lumbar spine complete from 01/14/2019 FINDINGS: BONES: No fracture or destructive lesion. Vertebral body heights are maintained. Prominent facet h ypertrophy identified from L3-4 through L5-S1. DISKS: Severe narrowing of the L1-2 disc space and prominent endplate osteophytes. Prominent osteo phytes also noted in the lower thoracic levels. Small endplate osteophytes are seen distally. The r emaining intervertebral disc spaces are maintained. ALIGNMENT: Mild retrolisthesis of L5 secondary to facet degenerative changes. SOFT TISSUE: Aortic calcifications. IMPRESSION: Degenerative changes, greatest at L1-2. DATA REPOSITORY: RADIATION DOSE DELIVERED:
== END 2024-05-16 12:23 ==
LOC: DI 12:05
PROVIDERS: PCP Family Medicine; Visit Provider Family Medicine
DX: M51.360 Other intervertebral disc degeneration, lumbar region with discogenic back pain only (principal)
CPT/HCPCS: 36415; 80053; 80061; 72110; 83036

== ENCOUNTER 2024-05-30 12:03 | Emergency (ER) | payer MEDICARE, BC, SELFPAY ==
--- NOTE | 2024-05-30 12:00 | RT.EKG_ITS ---
APPROVED REPORT Exam: Resting ECG Reason for Exam: sob Patient Location: E HR:70 bpm ECG Measurements Heart Rate 70 AXIS MD 158 P 50 QRSd 79 QRS -10 QT 399 T 51 QTc 431 Conclusion Sinus rhythm...normal P axis, V-rate 60- 99 I have reviewed and interpreted ECG and agree with software generated interpretation.
[2024-05-30 12:04] VITALS: BP 189/97; PULSE 70; RESP 14; TEMP 36.3; O2SAT 96
[2024-05-30 12:12] VITALS: BP 189/97; PULSE 70; RESP 14; TEMP 36.3; O2SAT 96
[2024-05-30 12:32] VITALS: RESP 18
[2024-05-30 13:05] LABS: Abs Immature Grans 0.01 10^3/uL (0.0-0.06); Absolute Basophil Count 0.05 10^3/uL (0.0-0.2); Absolute Eosinophil Count 0.51 10^3/uL (0.0-0.7); Absolute Lymphocyte Count 1.94 10^3/uL (1.2-3.4); Absolute Neutrophil Count 2.68 10^3/uL (1.2-6.7); Basophils % 0.9 %; Eosinophils % 9.1 %; HCT 38.5 % (36.0-46.0); HGB 12.8 g/dL (11.2-15.7); Immature Grans % 0.2 %; Lymphocytes % 34.7 %; MCH 30.2 pg (27.0-33.0); MCHC 33.2 % (32.0-36.0); MCV 91 fL (80-95); MPV 11.3 fL (8.0-11.0); Monocytes % 7.2 %; Neutrophils % 47.9 %; Platelet Count 163 10^3/uL (130-400); RBC 4.24 10^6/uL (3.93-5.22); RDW 12.7 % (11.7-14.6); RDW-SD 41.9 fL; WBC 5.59 10^3/uL (4.4-10.8)
[2024-05-30 13:15] LABS: Bilirubin Negative (Negative); Blood Negative (Negative); Clarity Clear (Clear); Glucose Negative (Negative); Ketones Negative (Negative); Leukocyte Esterase Trace (Negative); Nitrite Negative (Negative); Specific Gravity 1.015 (1.005-1.025); Urobilinogen 0.2 mg/dL (Up to 0.2)
[2024-05-30 13:25] LABS: Bacteria Negative HPF (Negative); C & S Indicated? No; Casts Negative LPF (Negative); Crystals Negative HPF (Negative); Epithelial Cells Rare HPF (Negative); Mucus Negative (Negative); RBC 0-2 HPF (0-2); WBC 0-2 HPF (0-5)
[2024-05-30 13:38] LABS: D-Dimer 2605 ng/mlFEU (<500)
--- NOTE | 2024-05-30 14:01 | ED.GENADUL_ITS ---
Discharge Plan Disposition Patient Disposition: Home Condition: Stable Discharge Details Clinical Impression: Acute dyspnea Primary Care Provider: Sandrine Dolan ED Provider: Mojgan Flaherty Home Meds and New Rx's Prescriptions: New fluticasone propionate 250 mcg/actuation blister with device 2 inh inhalation BID Qty: 60 0RF prednisone 20 mg tablet 40 mg PO ONCE Qty: 10 0RF doxycycline hyclate 100 mg capsule 100 mg PO BID Qty: 10 0RF Saccharomyces boulardii [Florastor] 250 mg capsule 250 mg PO BID Qty: 10 0RF Continued albuterol sulfate 90 mcg/actuation HFA aerosol inhaler 2 inh IH Q4H PRN (Reason: bronchospasm) Qty: 8.5 4RF prednisolone acetate 1 % drops,suspension 1 drp ophthalmic (eye) QID losartan 100 mg tablet 100 mg PO DAILY Qty: 90 3RF hydrochlorothiazide 25 mg tablet 25 mg PO DAILY Qty: 90 4RF acetaminophen 500 mg tablet 1,000 mg PO TID Qty: 90 0RF ibuprofen 600 mg tablet 600 mg PO TID PRN (Reason: pain) Qty: 90 0RF naproxen sodium [Aleve] 220 mg capsule 220 mg PO DAILY Discharge Instructions Instructions: Shortness of Breath, Adult ED Additional Instructions: You have been having shortness of breath for the past month and a half, I think it is really important that you follow-up with your doctor in an outpatient stress test has been ordered to be sure this is not your heart I did write for Flovent, this is for COPD I want you to use this 2 puffs twice daily Use the Combivent inhaler every 4 hours instead of your albuterol inhaler, make sure you always use a spacer Take the prednisone as prescribed Take the Florastor secondary to being on another antibiotic, this is a probiotic Take the doxycycline to treat you for inflammation in your lungs for the next 5 days as prescribed Please return immediately should you have new or worsening complaints Referrals: Sandrine Dolan MD, [place] [Primary Care Provider] - 2 days Discharge Data Discharge Date/Time-TO BE ENTERED AT DEPARTURE: 05/30/24 16:00 HPI General Date/Time Provider Initiated Documentation: 05/30/24 12:13 . HPI Narrative: This 78-year-old female presents with left upper back pain, shortness of breath, worsening over the course of the past several months. Patient states that she was evaluated approximately a month ago for similar presentation. She states that despite taking a course of prednisone and azithromycin her symptoms have not improved which is why she presents. She also developed some left upper back pain which started this morning and was not exertional in nature. She states that since resolved. She describes a pleuritic component to it. She denies any calf pain or swelling, recent flights, surgeries, long drives, she denies history of coagulopathy. She states at rest she feels okay but sometimes does exhibit some shortness of breath. She says predominantly with exertion her symptoms worsen. Related Data Home Medications ?Medication ?Instructions ?Recorded ?Confirmed hydrochlorothiazide 25 mg tablet 25 mg PO DAILY #90 tabs 06/30/23 05/30/24 losartan 100 mg tablet 100 mg PO DAILY #90 tabs 06/30/23 05/30/24 prednisolone acetate 1 % eye 1 drp ophthalmic (eye) QID 06/30/23 05/30/24 drops,suspension acetaminophen 500 mg tablet 1,000 mg (2 x 500 mg) PO TID #90 11/03/23 05/30/24 tabs ibuprofen 600 mg tablet 600 mg PO TID PRN pain #90 tabs 11/03/23 05/30/24 albuterol sulfate 90 mcg/actuation 2 inh inhalation Q4H PRN 03/24/24 05/30/24 aerosol inhaler bronchospasm #8.5 grams Saccharomyces boulardii 250 mg 250 mg PO BID #10 caps 05/30/24 capsule (Florastor) doxycycline hyclate 100 mg capsule 100 mg PO BID #10 caps 05/30/24 fluticasone propionate 250 2 inh inhalation BID #60 ea 05/30/24 mcg/actuation blister powder for inhalation naproxen sodium 220 mg capsule 220 mg PO DAILY 05/30/24 05/30/24 (Aleve) prednisone 20 mg tablet 40 mg (2 x 20 mg) PO ONCE #10 tabs 05/30/24 Previous Rx's ?Medication ?Instructions ?Recorded hydrochlorothiazide 25 mg tablet 25 mg PO DAILY #90 tabs 06/30/23 losartan 100 mg tablet 100 mg PO DAILY #90 tabs 06/30/23 acetaminophen 500 mg tablet 1,000 mg (2 x 500 mg) PO TID #90 11/03/23 tabs ibuprofen 600 mg tablet 600 mg PO TID PRN pain #90 tabs 11/03/23 albuterol sulfate 90 mcg/actuation 2 inh inhalation Q4H PRN 03/24/24 aerosol inhaler bronchospasm #8.5 grams Saccharomyces boulardii 250 mg 250 mg PO BID #10 caps 05/30/24 capsule (Florastor) doxycycline hyclate 100 mg capsule 100 mg PO BID #10 caps 05/30/24 fluticasone propionate 250 2 inh inhalation BID #60 ea 05/30/24 mcg/actuation blister powder for inhalation prednisone 20 mg tablet 40 mg (2 x 20 mg) PO ONCE #10 tabs 05/30/24 Allergies Allergy/AdvReac Type Severity Reaction Status Date / Time metronidazole Allergy Unknown unknown Verified 05/30/24 12:39 tetanus and diphtheria AdvReac Unknown BECOMES Verified 05/30/24 12:39 toxoids ILL; HIGH FEVER gabapentin AdvReac felt out Verified 05/30/24 12:39 of it gluten AdvReac bloating Verified 05/30/24 12:39 dust and mold Allergy unknown Uncoded 05/30/24 12:39 FOOD STARCH AdvReac Mild CANNOT Uncoded 05/30/24 12:39 NAME THEM ALL GRAIN AdvReac Mild BLOATING Uncoded 05/30/24 12:39 General Stated Complaint: [facility] АННА: 3 Exam Narrative Exam Narrative: 78-year-old female alert and oriented, no acute distress, lungs are actually clear clear at time of assessment, no reproducible chest pain, no abdominal tenderness, no calf swelling or tenderness appreciated, neurovascularly intact all 4 extremities alert and oriented x 4. Course Vital Signs Vital signs: Vital Signs Temperature 36.3 C L 05/30/24 12:04 Pulse 70 05/30/24 12:04 Respiratory Rate 14 05/30/24 12:04 Blood Pressure 189/97 H 05/30/24 12:04 Pulse Oximetry 96 05/30/24 12:04 Temperature 36.3 C L 05/30/24 12:12 Temperature Source Core 05/30/24 12:12 Pulse 70 05/30/24 12:12 Respiratory Rate 18 05/30/24 12:32 Respiratory Effort Normal, Non-Labored 05/30/24 12:32 Respiratory Depth Normal 05/30/24 12:32 Respiratory Pattern Normal 05/30/24 12:32 Blood Pressure 189/97 H 05/30/24 12:12 Blood Pressure Position Sitting 05/30/24 12:12 Pulse Oximetry 96 05/30/24 12:12 Oxygen Delivery Method Room Air 05/30/24 12:12 Oxygen Flow Rate 0 05/30/24 12:12 Pain Level 5 05/30/24 12:12 Lab/Test Results Lab/Test Results: Laboratory Tests Range/Units 05/30/24 05/30/24 12:20 12:53 WBC (4.4-10.8) 10^3/uL 5.59 RBC (3.93-5.22) 10^6/uL 4.24 Hgb (11.2-15.7) g/dL 12.8 Hct (36.0-46.0) % 38.5 MCV (80-95) fL 91 MCH (27.0-33.0) pg 30.2 MCHC (32.0-36.0) % 33.2 RDW (11.7-14.6) % 12.7 Plt Count (130-400) 10^3/uL 163 MPV (8.0-11.0) fL 11.3 H Immature Gran % % 0.2 Neutrophils % % 47.9 Lymphocytes % % 34.7 Monocytes % % 7.2 Eosinophils % % 9.1 Basophils % % 0.9 Nucleated RBC % (0.0-0.3) % 0.0 Absolute Neutrophils (1.2-6.7) 10^3/uL 2.68 Absolute Lymphocytes (1.2-3.4) 10^3/uL 1.94 Absolute Monocytes (0.1-0.8) 10^3/uL 0.40 Absolute Eosinophils (0.0-0.7) 10^3/uL 0.51 Absolute Basophils (0.0-0.2) 10^3/uL 0.05 D-Dimer (<500) ng/mlFEU 2605 H Sodium Cancelled Potassium Cancelled Chloride Cancelled Carbon Dioxide Cancelled Anion Gap Cancelled BUN Cancelled Creatinine Cancelled Est GFR (CKD-EPI 2020) Cancelled Glucose Cancelled Calcium Cancelled Total Bilirubin Cancelled AST Cancelled ALT Cancelled Alkaline Phosphatase Cancelled Troponin I Cancelled NT-Pro-B Natriuret Pep Cancelled Total Protein Cancelled Albumin Cancelled Lipase Cancelled Urine Color (Yellow) Yellow Urine Clarity (Clear) Clear Urine pH (5-8) 7.0 Ur Specific [place] (1.005-1.025) 1.015 Urine Protein (Neg-Trace) mg/dL Negative Urine Ketones (Negative) mg/dL Negative Urine Blood (Negative) Negative Urine Nitrite (Negative) Negative Urine Bilirubin (Negative) Negative Urine Urobilinogen (Up to 0.2) mg/dL 0.2 Ur Leukocyte Esterase (Negative) Trace H Urine RBC (0-2) HPF 0-2 Urine WBC (0-5) HPF 0-2 Ur Epithelial Cells (Negative) HPF Rare Urine Crystals (Negative) HPF Negative Urine Bacteria (Negative) HPF Negative Urine Casts (Negative) LPF Negative Urine Mucus (Negative) Negative Ur Culture Indicated? No Urine Glucose (Negative) mg/dL Negative Medical Decision Making 78-year-old female presenting with approximately 6-week history of shortness of breath with intermittent pain complaints. She has been evaluated on 3 separate occasions for this presentation and did not feel like her symptoms were improved with antibiotics and steroids. She does use an albuterol inhaler but I do not see that she is on a steroid or beta 2 agonist. I did order cardiac evaluation including 2 troponins, CTA chest and given age and comorbidities, and diagnostic labs which do not show significant acute abnormality. EKG is nonischemic and I think at this point radiation stable for discharge home, she is not hypoxic and actually she feels better after 2 DuoNebs in the emergency department. Patient is not hypoxic although she is mildly dyspneic with any exertion. I spoke with Dr. Dolan, patient's PCP and I think at this point she would benefit from an outpatient stress test I see no clear indication for admission at this time but patient does have some cardiac risk factors including that of age and hypertension history. I will initiate prednisone and doxycycline after discussion with Dr. Dolan. I will also start patient on Flovent for steroid inhalation and a Combivent inhaler instead of the albuterol inhaler. She will need close outpatient follow-up and outpatient stress test which Dr. Dolan will order. Return precautions reviewed and patient expressed understanding, discharged home in stable condition with mildly elevated blood pressure which patient will need to have rechecked by her primary care physician. Quality:SDOH Health Related Social Needs: Health related social needs problem related to primary support group(Z63.9) PFSH All Active Problems (Updated 05/30/24 @ 15:32 by SHASHI Sanchez) Acute dyspnea (Acute) COPD (chronic obstructive pulmonary disease) (Chronic) Shortness of breath (Acute) Adrenal nodule (Acute) Weight gain (Acute) Low back pain (Acute) Periocular dermatitis (Acute) Environmental allergies (Acute) Thumb pain (Acute) Nasal dryness (Acute) Hypertension (Chronic) Allergies (Acute) Mass in neck (Acute) Degenerative joint disease of right knee (Acute) Defect of lacrimal duct (Acute) Pure hypercholesterolemia (Acute) Pelvic floor dysfunction (Acute) Urinary urgency (Acute) Lumbar stenosis (Acute) Tubular adenoma of colon (Acute ~09/20/18) Esophagitis (Acute ~09/20/18) Gastritis and duodenitis (Acute ~09/20/18) GERD (gastroesophageal reflux disease) (Chronic) Synovial cyst of lumbar facet joint (Chronic 04/08/17) Sleep apnea (Chronic 08/19/17) CPAP Neuropathy (Chronic 01/06/17) Insomnia (Chronic) Dupuytren's contracture of hand (Chronic 04/22/16) Diverticulitis of colon (Chronic) 2006 COLONOSCOPY: DIVERTICULITIS/COLITIS Chronic rhinitis (Chronic 12/12/15) Asthma (Chronic) severe does not use meds as prescribed Acute right-sided low back pain with right-sided sciatica (Acute 02/11/17) Medical History Clostridium difficile infection (Unknown) Chest pain Pt. states it didn't amount to anything, it was anxiety Weight loss Other specified bacterial agents as the cause of diseases classified elsewhere Clostridium difficile infection; several months Dysfunctional uterine bleeding s/p hysterctomy at age 51 Lateral epicondylitis Ulcerative colitis Trochanteric bursitis of right hip (09/17/16) Renal and ureteric calculus (02/12/17) Rash (12/03/17) Postnasal drip (12/12/15) Low back pain, non-specific DISC Lateral epicondylitis Internal derangement of right knee (09/17/16) Impaired renal function (11/28/13) Impaired glucose tolerance (11/28/13) NORMAL A1C Grief at loss of child (11/10/16) Generalized osteoarthrosis HANDS/TOES Dizzy (09/06/15) Disorder of elbow in adult soft tissue mass Depressive disorder Cervical spondylosis Surgical History Trigger thumb, left thumb S/P Release: 11/03/2023 S/P colonoscopy (~10/2023) 2019 S/P tonsillectomy and adenoidectomy History of bladder surgery H/O arthroscopy of knee B/L S/P laparoscopic hysterectomy 06/29/97 DUB Tonsillectomy and adenoidectomy AGE 9 Hysterectomy, Laproscopic (~1997) dub Colonoscopy - MAC (~2006) 2019- 3 tubular adenomas Bladder Surgery Arthroplasty of knee b/l patient reports arthroscopic only Family History Mother , age 72 Colon cancer Depression Heart disease Brother Depression Smoker COPD (chronic obstructive pulmonary disease) Maternal Grandfather , age 94 Heart disease Paternal Grandfather , age 72 Heart disease Maternal Grandmother , age 30 Stroke Cancer Paternal Grandmother , age 75 Cancer Son , age 47 Asthma Alcohol abuse Depression Son Hyperlipidemia Son Adrenal insufficiency Father , age 50 No problems noted. Daughter , age 17 No problems noted. Social History Smoking/Tobacco Use Status: Former Tobacco Use tobacco type: cigarettes Quit Date: 06/29/65 Tobacco: How many years used: 5 Second Hand Exposure: Yes (as a child) Smoking risk assessment performed?: Yes Alcohol Intake: current Alcohol Intake frequency: a few times a week Alcohol type: wine Drug use: Rarely Substance use type: does not use and painkillers Adopted: No Caregiver/Support person: No Household members: none Housing: house Number of Children: 1 number of grandchildren: 3 Communication Needs: Corrective Lenses Education Level: high school Do you need help understanding health information?: Rarely 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 Pets and animals: Yes Pets and animals: cat(s) Sexually active: No Do you think of yourself as: straight/heterosexual Current gender identity: female What is your relationship status?: How often do you talk on the phone with friends or family?: twice per week How often do you get together with friends or relatives?: once per week How often do you attend scientologist or church services?: 1-3 times per year Do you belong to any clubs or organized social groups?: no Panel score (0-1 are the most socially isolated patients): 1 What type of physical activity do you participate in: walking Duration: < 15 minutes/day Frequency: 3-4 times per week Darline/Jewish: Non congregational Special darline needs: No Seatbelt use: always Helmet use: No Drive intox or ride w/intox pile driver: No Firearms in home: Yes Firearms unloaded and locked: Yes Do you feel safe at home: Yes Do you feel safe in your relationship?: Yes Victim of physical abuse: No Victim of emotional abuse: No Victim of sexual abuse: No Would you like helpful sources: No Additional Social history: lives alone
[2024-05-30] MEDS: Omnipaque 350 MG/ML 100 ML BTL IJ (14:16)
[2024-05-30 14:17] LABS: ALT 45 U/L (14-59); AST 31 U/L (15-37); Albumin 3.9 g/dL (3.4-5.0); Alkaline Phosphatase 79 U/L (46-116); BUN 20 mg/dL (7-18); Bilirubin, Total 0.54 mg/dL (0.2-1.0); CREATININE 1.1 mg/dL (0.55-1.02); Chloride 109 mmol/L (98-107); Estimated GFR 51.75 (mL/min/1.73m2); Glucose 102 mg/dL (74-106); Lipase 91 U/L (<78); NT-proBNP 89 pg/mL (<300); Potassium 4.3 mmol/L (3.5-5.1); Sodium 144 mmol/L (136-145); Total Protein 6.9 g/dL (6.4-8.2); Troponin I 5 ng/L (<or=51)
[2024-05-30] MEDS: Normal Saline - Diluent 50 ML VIAL IJ (14:18)
--- NOTE | 2024-05-30 14:25 | DI.CT_ITS ---
Exam(s) CT CHEST PE CTA EXAM: CT CHEST PE CTA CLINICAL HISTORY: left chest pain, pleurisy, shortness of breath. TECHNIQUE: Imaging Protocol: Axial CT angiography was performed with multi-slice acquisition and mu lti-planar and/or 3D reconstructions. Lung Computer Aided Detection (CAD) was utilized. CONTRAST MATERIAL: Intravenous: Omnipaque 350 contrast volume:80 mL COMPARISON: CT CT CHEST PE CTA from 04/19/2024 FINDINGS: Tracheobronchial tree: Patent where visualized. No bronchiectasis. Pulmonary parenchyma: No consolidation or dominant measurable mass. Calcified granuloma in the right lower lobe. Pulmonary Arteries: No evidence of filling defect to suggest pulmonary emboli. Mediastinum and Torrie: No dominant adenopathy or fluid collection. The esophagus is unremarkable. Visualized thyroid gland: Unremarkable. Pleura: No effusion or pneumothorax. Heart: The heart is not dilated. Three vessel coronary artery calcification is present. No pericardi al effusion. Aorta: Thoracic aorta non-dilated. Due to the timing of the bolus the aorta is suboptimally opacified . Atherosclerotic calcification is present. Upper abdomen: Cholelithiasis. There is a stable right adrenal nodule most consistent with an adeno ma. Soft tissues: Unremarkable. Bones: Within normal limits for the patient's age. IMPRESSION: 1. No evidence of a pulmonary embolism or thoracic aortic aneurysm. 2. No acute pulmonary process. RADIATION DOSE DELIVERED: Total DLP DATA REPOSITORY: All CT scans at this facility are submitted to the National Radiology Data Registry (NRDR) Dose Index Registry (DIR) with the [employer] (ACR). RADIATION OPTIMIZATION: All CT scans at this facility use at least one of these dose optimization te chniques: automated exposure control; mA and/or kV adjustment per patient size (includes targeted exa ms where dose is matched to clinical indication); or iterative reconstruction.
[2024-05-30 14:33] VITALS: PULSE 72; RESP 9; O2SAT 94
[2024-05-30] MEDS: Albuterol/Ipratropium 3 ML UPD VIAL UPD (14:33)
[2024-05-30 14:39] LABS: Calcium 8.9 mg/dL (8.5-10.1)
[2024-05-30] MEDS: Ipratropium/Albuterol 4 GM 120 PUFF INH IH (15:05)
[2024-05-30 15:18] LABS: Troponin I 7 ng/L (<or=51)
[2024-05-30 16:00] VITALS: BP 168/84; PULSE 76; RESP 16; TEMP 36.7; O2SAT 97
--- NOTE | 2024-05-30 17:17 | NUR.NOTE ---
Faxed to PCP prior authorization for fluticasone propionate diskus 250mg/act aerosol powder. ED does not do prior authorizations. Nursing Note:
== END 2024-05-30 16:00 | disposition home or self-care (01) ==
PROVIDERS: Emergency Provider Physician Assistant; PCP Family Medicine
DX: R06.00 Dyspnea, unspecified (principal); J44.9 Chronic obstructive pulmonary disease, unspecified; I10 Essential (primary) hypertension; Z87.891 Personal history of nicotine dependence
CPT/HCPCS: 71275; 80053; 83690; 93005; 94640; 99285; 81003; 81015; 83880; 84484; 85025; 85379; 93010; J3490; J7620

== ENCOUNTER 2024-06-09 01:30 | Outpatient (CLI) | payer MEDICARE, BC, SELFPAY ==
[2024-06-09] MEDS: Regadenoson 0.4 MG/5 ML SYR IVP (11:08)
--- NOTE | 2024-06-09 13:00 | DI.NM_ITS ---
APPROVED REPORT Exam: Pharmacologic Patient Location: Out-Patient Room/Bed: Stress Nurse: Alma Vigil RN Ordering Provider:CARLOS FREEMAN, Contact Number: [phone] BMI: 30.44 Baseline Rhythm: Sinus Bradycardia Indications: SOB, chest tightness, Medical History Medical History: COPD, HTN, HLD, GERD, sleep apnea, neuropathy, insomnia, asthma, dizziness, depressi on Cardiac Medications: Albuterol sulfate, arnuity ellipta, hydrochlorothiazide, losartan Allergies: Metronidazole, tetanus and diptheria toxins, gabapentin, gluten Cardiac Risk Factors: Family hx, HTN, HLD, asthma, COPD, former smoker Previous Cardiac Procedures: None Pretest Chest Pain Characteristics: None Exercise History: Sedentary Lung Sounds: Clear to auscultation Heart Sounds: Regular Stress Test Details Test: Pharmacologic stress testing performed using 0.4 mg of regadenoson per 5 mL given IV over 10 s econds. Reason for pharmacologic stress test: physical limitation. Nuclear Acquisition: Rest Tc-99m/Stress Tc-99m 1 day Rest Isotope: Tc-99m Sestamibi. Dose: 10.0 Date: 06/09/2024 Injection Time: 0910 Stress Isotope: Tc-99m Sestamibi. Dose: 30.0 Date: 06/09/2024 Injection Time: 1056 HR Resting HR Supine: 53 bpm Max Heart Rate (APMHR): 143 bpm Target HR (85% APMHR): 122 bpm Max HR Achieved: 91 bpm % of APMHR: 64 Recovery HR: 71 bpm BP Resting BP Supine: 160/84 mmHg Max BP: 160/84 mmHg Recovery BP: 140/68 mmHg ECG Resting ECG: Sinus Bradycardia Ectopy: None Stress ECG: Sinus Rhythm ST Change: Nondiagnostic low heart rate Arrhythmia: None Recovery ECG: Sinus Rhythm Recovery ST Change: Nondiagnostic low heart rate Recovery Arrhythmia: None Clinical Stress Symptoms: Mild SOB, 6/10 chest pressure, head pressure Angina Score: Non-Limiting Rate Pressure Product: [id number] Stress ECG Conclusion 1. Resting electrocardiogram showed late transition 2. Patient underwent testing using pharmacologic stress with regadenoson 3. Peak heart rate achieved was 64% of maximal predicted for age 4. The electrocardiographic portion of the test was nondiagnostic 5. There were no significant dysrhythmias 6. See MPI report Stress Test Summary STAGE HR BP SpO2 Symptoms NOTES Supine 53 160/84 1 min post Lexiscan injection 66 144/80 95% Mild SOB 3 min post Lexiscan injection 77 158/68 97% Mild SOB, 6/10 chest pressure, head pressure. 6 min post Lexiscan injection 71 140/68 SOB and chest pressure resolved. Patient left stress lab ambulatory in no apparent distress. MPI Conclusion Myocardial perfusion is normal. There is no ischemia or evidence of prior infarction Ejection fraction is 74% with normal wall motion
== END 2024-06-09 01:50 ==
LOC: DI 01:30
PROVIDERS: PCP Family Medicine; Visit Provider Family Medicine
DX: R06.02 Shortness of breath (principal); R07.9 Chest pain, unspecified
CPT/HCPCS: 78452; 93016; 93018; 93017; J2785

== ENCOUNTER 2024-06-17 02:42 | Outpatient (CLI) | payer MEDICARE, BC, SELFPAY ==
[2024-06-17] MEDS: Inhaler, Assist Device 1 EACH MC (11:07)
[2024-06-17] MEDS: Levalbuterol HFA 15 GM INH 4 PUFF IH (11:07)
--- NOTE | 2024-06-17 16:01 | W.PFT ---
Date of service: 06/17/24 Time of Service: 10:04 Pulmonary Function Test Result Indications: Asthma Interpretation Spirometry: Nor airflow limitation. No bronchodilator response Lung Volumes: Normal lung volumes Diffusion Capacity: Normal diffusion Airway Pressure: Increased airways resistance Impression Increased airways resistance, otherwise normal. Clinical Correlation therefore is recommended.
== END 2024-06-17 02:43 | disposition home or self-care (01) ==
LOC: RT 02:43
PROVIDERS: PCP Family Medicine; Visit Provider Family Medicine
DX: J45.909 Unspecified asthma, uncomplicated (principal)
CPT/HCPCS: 94060; 94726; 94729

== ENCOUNTER → 2024-07-20 14:01 | Outpatient (BNVA) | payer MEDICARE, BC, SELFPAY | PROVIDERS: PCP Family Medicine; Referring Provider Family Medicine; Visit Provider Physician Assistant Surgical | DX: J45.909 Unspecified asthma, uncomplicated (principal); G47.30 Sleep apnea, unspecified; Z87.891 Personal history of nicotine dependence | CPT/HCPCS: 99215 ==

== ENCOUNTER 2024-08-02 08:30 | Outpatient (CLI) | payer MEDICARE, BC, SELFPAY ==
[2024-08-03 20:21] LABS: Aspergillus Fumigatus IgE <0.10 kU/L (<0.70); Aspergillus Niger, IgE <0.10 kU/L (<0.70)
[2024-08-12 15:06] LABS: Aspergillus amstelodami/glaucu Negative (Negative); Aspergillus flavus Negative (Negative); Aspergillus fumigatus Mix Negative (Negative); Aspergillus nidulans Negative (Negative); Aspergillus niger Negative (Negative); Aspergillus versicolor Negative (Negative)
== END 2024-08-02 08:31 | disposition home or self-care (01) ==
LOC: LOS 08:31
PROVIDERS: PCP Family Medicine; Referring Provider Family Medicine; Visit Provider Family Medicine
DX: T78.40XA Allergy, unspecified, initial encounter (principal); R68.89 Other general symptoms and signs; J45.909 Unspecified asthma, uncomplicated
CPT/HCPCS: 36415; 86331; 86003; 86606

== ENCOUNTER → 2024-08-24 13:35 | Outpatient (BNVA) | payer MEDICARE, BC, SELFPAY | PROVIDERS: PCP Family Medicine; Referring Provider Family Medicine; Visit Provider Physician Assistant Surgical | DX: J45.909 Unspecified asthma, uncomplicated (principal); G47.30 Sleep apnea, unspecified | CPT/HCPCS: 36415; 99214 ==

== ENCOUNTER 2024-08-24 15:27 | Outpatient (REF) | payer MEDICARE, BC, SELFPAY ==
[2024-08-24 15:34] LABS: Abs Immature Grans 0.01 10^3/uL (0.0-0.06); Absolute Basophil Count 0.03 10^3/uL (0.0-0.2); Absolute Eosinophil Count 0.17 10^3/uL (0.0-0.7); Absolute Monocyte Count 0.41 10^3/uL (0.1-0.8); Absolute Neutrophil Count 2.49 10^3/uL (1.2-6.7); Basophils % 0.6 %; Eosinophils % 3.3 %; HCT 38.2 % (36.0-46.0); HGB 12.6 g/dL (11.2-15.7); Immature Grans % 0.2 %; Lymphocytes % 39.1 %; MCH 29.4 pg (27.0-33.0); MCV 89 fL (80-95); MPV 11.5 fL (8.0-11.0); Neutrophils % 48.8 %; Platelet Count 154 10^3/uL (130-400); RBC 4.29 10^6/uL (3.93-5.22); RDW 13.1 % (11.7-14.6); RDW-SD 42.6 fL; WBC 5.11 10^3/uL (4.4-10.8)
[2024-08-26 11:11] LABS: IgE 3 IU/mL (<158)
== END 2024-08-24 15:28 | disposition home or self-care (01) ==
LOC: LBN 15:27
PROVIDERS: PCP Family Medicine; Visit Provider Physician Assistant Surgical
DX: J45.909 Unspecified asthma, uncomplicated (principal); G47.30 Sleep apnea, unspecified
CPT/HCPCS: 82785; 85025

== ENCOUNTER 2024-10-31 01:20 | Outpatient (CLI) | payer MEDICARE, BC, SELFPAY ==
--- NOTE | 2024-10-31 13:30 | DI.US_ITS ---
APPROVED REPORT EXAM: Comprehensive 2D, Doppler, and color-flow Echocardiogram Patient Location: Out-Patient Quality Assistant: Rod Ascencio RDCS (AE) Indications: SOB, ? pulmonary HTN Other Information Study Quality: Good Conclusion Normal left ventricular wall thickness and chamber size. Ejection fraction is 60 to 65%. Wall motio n is normal Normal right ventricular size and function Both atria are normal in size Mild mitral annular calcification. Trace mitral regurgitation Normal tricuspid valve with mild regurgitation. Estimated right ventricular systolic pressure is 33 mmHg Wall motion Left Ventricle The left ventricle is normal size. Left ventricular systolic function is normal. The left ventricular ejection fraction is within the normal range. There is normal left ventricular wall thickness. There is normal LV segmental wall motion. There is no ventricular septal defect visualized. LVEF is 60-65% . Right Ventricle The right ventricle is normal size. The right ventricular systolic function is normal. Atria The left atrium size is normal. The right atrium size is normal. The interatrial septum is intact wit h no evidence for an atrial septal defect. Aortic Valve The aortic valve is normal in structure. There is no aortic valvular stenosis. No aortic regurgitatio n is present. Mitral Valve Mild mitral annular calcification. No evidence of mitral valve stenosis. Trace mitral regurgitation. Tricuspid Valve The tricuspid valve is normal in structure. There is no tricuspid valve stenosis. Mild tricuspid regu rgitation. The RVSP is 33.4 mmHg. Pulmonic Valve The pulmonary valve is normal in structure. There is no pulmonic valvular stenosis. There is no pulmo flora valvular regurgitation. Great Vessels The aortic root is normal in size. The ascending aorta is normal in size. Aortic arch is normal in ca liber. IVC is normal in size and collapses >50% with inspiration. Pericardium There is no pericardial effusion. 2D Dimensions IVSD d PLAX 0.77 cm F: 0.6-1.0 Ao Root d 2.32 cm F: 2.7 - 3.3 LVPW d PLAX 0.75 cm F: 0.6 - 1.0 Ao Asc Diam d 2.83 cm F: 2.3 - 3.1 LVID d PLAX 5.11 cm F: 3.8 - 5.2 LVDs 3.30 cm F: 2.2 - 3.5 LV EF Teichholz 64.6 % FS 35.46 % LV EDV (Teich) 124.5 mL LV ESV (Teich) 44.1 mL Stroke Vol Index (Teich) 42.74 M-Mode TAPSE 2.58 cm (M/F) >1.7 Auto EF LV EDV A4C 72.0 mL LV EDV A2C 79.7 mL LV EDV BP 75.2 mL LV ESV A4C 26.9 mL LV ESV A2C 27.8 mL LV ESV BP 27.6 mL LVEF(%) A4C 62.6 % LVEF(%) A2C 65.1 % LVEF(%) BP 63.3 % LV SV A4C 45.0 ml LV SV A2C 51.9 ml LV SV BP 47.6 ml LV CO A4C 2.8 L/min LV CO A2C 3.2 L/min LV CO BP 3.0 L/min HR A4C 63.03 BPM HR A2C 62.40 BPM LV EDV Index (BP) LA Volume LA Length A4C 4.1 cm LA Length A2C 4.3 cm LA Area A4C s 10.09 cm2 LA Area A2C s 10.48 cm2 LA Vol A4C A-L 21.01 mL LA Vol A2C A-L 21.47 mL LA Vol Biplane A-L 21.8 mL LA Vol/BSA A4C A-L LA Vol/BSA A2C A-L LA Vol/BSA BP A-L 11.6 mL/m2 LA Vol A4C MOD 19.6 mL LA Vol A2C MOD 20.1 mL LA Vol BP MOD 20.4 mL RA Volume RA Area A4C 9.9 cm2 RA ESV A4C (A-L) 21.3mL RA Vol/BSA A4C A-L RA Length A4C 3.9 cm RA ESV A4C (MOD) 19.5mL LV Diastology MV E' medial 0.075 (>0.07 m/s) MV E Vmax 1.02 (0.4-1.3 m/s) MV E/E' MED 13.58 (<14) MV A Vmax 1.20 (0.4-1.3 m/s) MV E' lateral 0.087 (>0.1 m/s) E/A Ratio 0.9 MV E/E' LAT 11.77 (<14) MV E' Average 0.081 m/s MV E/E'(average) 12.61 Aortic Valve AoV Vmax 1.56 m/s LVOT Vmax 1.11 m/s AoV Peak Grad 9.7 mmHg LVOT Peak Grad 4.9 mmHg AoV Area (Vmax) 2.04 cm2 LVOT VTI 0.256 m AoV VTI 0.338 m LVOT Mean Grad 2.7 mmHg AoV Mean Jhonatan. 1.00 m/s LVOT SV 73.45 mL AoV Mean Grad 4.6 mmHg LVOT Diam s 1.90 cm AoV Area (VTI) 2.17 cm2 AV Regurg Peak Gr. 9.68 mmHg Velocity Ratio 0.71 Mitral Valve MV DT 228 (160-240 msec) MV Vmax TIPS 1.21 m/s MV Mean Grad 2.2 (<2mmHg) MV VTI 0.387 m Pulmonary Valve PV Vmax 1.02 (0.5-1.5 m/s) RVOT Vmax 0.70 m/s PV Peak Grad 4.1 mmHg RVOT Peak Gr. 1.9 mmHg PV Mean Jhonatan 0.74 m/s RVOT VTI 0.145 m PV Mean Grad 2.4 mmHg RVOT Mean Gr. 1.1 mmHg Tricuspid Valve RA Pressure 3.00 mmHg TR Vmax 2.76 m/s TV S' 0.16 m/s TR Peak Grad 30.3 mmHg RVSP (TR) 33.4 mmHg
== END 2024-10-31 01:40 ==
LOC: DI 01:27
PROVIDERS: PCP Family Medicine; Visit Provider Internal Medicine Cardiovascular Disease
DX: R06.02 Shortness of breath (principal)
CPT/HCPCS: 93306

== ENCOUNTER 2024-12-09 14:48 | Outpatient (REF) | payer MEDICARE, BC, SELFPAY ==
[2024-12-09 13:48] LABS: Bilirubin Negative (Negative); Blood Negative (Negative); Clarity Clear (Clear); Glucose Negative (Negative); Ketones Negative (Negative); Leukocyte Esterase Negative (Negative); Nitrite Negative (Negative); Urobilinogen 0.2 mg/dL (Up to 0.2); pH 5.5 (5-8)
== END 2024-12-09 14:49 | disposition home or self-care (01) ==
LOC: LBN 14:48
PROVIDERS: PCP Family Medicine; Visit Provider Family Medicine
DX: R30.0 Dysuria (principal)
CPT/HCPCS: 81003

== ENCOUNTER 2024-12-13 01:24 | Outpatient (CLI) | payer MEDICARE, BC, SELFPAY ==
[2024-12-13] MEDS: Barium Sulfate 2% W/V-Berry Smoothie 450 ML BTL PO ×2 (12:28→12:29)
[2024-12-13 12:54] LABS: CREATININE 1.2 mg/dL (0.55-1.02); Estimated GFR 46.33 (mL/min/1.73m2)
[2024-12-13] MEDS: Normal Saline - Diluent 50 ML VIAL IJ (14:39)
[2024-12-13] MEDS: Omnipaque 350 MG/ML 100 ML BTL IJ (14:41)
--- NOTE | 2024-12-13 15:00 | DI.CT_ITS ---
Exam(s) CT ABDOMEN PELVIS W EXAM: CT ABDOMEN PELVIS W CLINICAL HISTORY: renal mass and persistent pelvic pain,ADRENAL NODULE,DIVERTICULITIS OF COLO. TECHNIQUE: Imaging Protocol: Axial computed tomography images with coronal and sagittal reformatted images were created and reviewed CONTRAST MATERIAL: Intravenous: Omnipaque 350 Contrast volume:75 ml Oral: yes COMPARISON: CT CT CHEST PE CTA from 05/30/2024 and 04/19/2024 FINDINGS: ABDOMEN and PELVIS: Lung Bases: No acute findings. Liver: Normal density. No suspicious mass. Gallbladder and biliary tract: Gallstones are noted. No wall thickening or pericholecystic fluid. No biliary dilation. Pancreas: Normal density. No abnormal calcifications or inflammatory process. No evidence of mass. Spleen: Normal. Kidneys: Normal size, contour and axis. No radiodense stones. No obstructive uropathy. No suspicious masses seen. Adrenal glands: Stable size of circumscribed right adrenal nodule, 18 millimeters. Washout characteristics consistent with a benign adenoma. Vasculature: Abdominal aorta non-dilated. Soft tissues: Unremarkable. Bladder: No gross wall thickening. No calculi.No focal mass. Bowel: The distal small bowel and colon are well opacified with oral contrast. No obstruction. No bowel wall thickening. Appendix normal. Sigmoid diverticulosis. No evidence of diverticulitis. Peritoneal cavity: No ascites. No focal collection. No mesenteric inflammatory response. No free air. Bones: Bilateral L5 spondylolysis without spondylolisthesis. Advanced degenerative disc changes and facet degenerative changes. Reproductive organs: Hysterectomy. Lymph nodes: No pathologically enlarged lymph nodes. IMPRESSION:: No acute abnormality in the abdomen or pelvis. Diverticulosis without evidence of diverticulitis. Stable benign appearing right adrenal nodule. No follow-up recommended. RADIATION DOSE DELIVERED: Total DLP DATA REPOSITORY: All CT scans at this facility are submitted to the National Radiology Data Registry (NRDR) Dose Index Registry (DIR) with the [employer] ([employer]). RADIATION OPTIMIZATION: All CT scans at this facility use at least one of these dose optimization techniques: automated exposure control; mA and/or kV adjustment per patient size (includes targeted exams where dose is matched to clinical indication); or iterative reconstruction.
== END 2024-12-13 01:44 ==
PROVIDERS: PCP Family Medicine; Visit Provider Family Medicine
DX: K57.32 Diverticulitis of large intestine without perforation or abscess without bleeding (principal); E27.9 Disorder of adrenal gland, unspecified
CPT/HCPCS: 74177; 82565; J3490

== ENCOUNTER 2025-01-04 04:07 | Outpatient (CLI) | payer MEDICARE, BC, SELFPAY ==
[2025-01-04 15:12] LABS: Hemoglobin A1C 5.4 % (<5.7)
[2025-01-04 15:45] LABS: ALT 44 U/L (14-59); AST 28 U/L (15-37); Albumin 4.2 g/dL (3.4-5.0); Alkaline Phosphatase 96 U/L (46-116); Anion Gap 9.7 mmol/L (3-11); BUN 28 mg/dL (7-18); Bilirubin, Total 0.5 mg/dL (0.2-1.0); CO2 26.3 mmol/L (21.0-32.0); Calcium 9.3 mg/dL (8.5-10.1); Chloride 107 mmol/L (98-107); Estimated GFR 42.09 (mL/min/1.73m2); Glucose 99 mg/dL (74-106); Potassium 4.0 mmol/L (3.5-5.1); Sodium 143 mmol/L (136-145); TSH (W/Ref FT4) 1.39 uIU/mL (0.36-3.74); Total Protein 7.3 g/dL (6.4-8.2)
== END 2025-01-04 04:08 | disposition home or self-care (01) ==
LOC: LBO 04:07
PROVIDERS: PCP Family Medicine; Visit Provider Family Medicine
DX: E11.9 Type 2 diabetes mellitus without complications (principal); E03.9 Hypothyroidism, unspecified
CPT/HCPCS: 36415; 80053; 83036; 84443

== ENCOUNTER → 2025-01-11 10:49 | Outpatient (BNVA) | payer MEDICARE, BC, SELFPAY | PROVIDERS: PCP Family Medicine; Referring Provider Family Medicine; Visit Provider Internal Medicine Pulmonary Disease | DX: J45.40 Moderate persistent asthma, uncomplicated (principal); R06.00 Dyspnea, unspecified; J30.9 Allergic rhinitis, unspecified | CPT/HCPCS: 99215; 36415 ==

== ENCOUNTER 2025-01-11 18:25 | Outpatient (REF) | payer MEDICARE, BC, SELFPAY | END 2025-01-11 18:26 | disposition home or self-care (01) | LOC: LBN 18:25 | PROVIDERS: PCP Family Medicine; Visit Provider Internal Medicine Pulmonary Disease | DX: J45.909 Unspecified asthma, uncomplicated (principal) | CPT/HCPCS: 82785 ==

== ENCOUNTER → 2025-01-19 12:55 | Outpatient (BNVA) | payer MEDICARE, BC, SELFPAY | PROVIDERS: PCP Family Medicine; Referring Provider Family Medicine; Visit Provider Podiatrist | DX: Q82.8 Other specified congenital malformations of skin (principal); M77.41 Metatarsalgia, right foot; M21.611 Bunion of right foot; M20.41 Other hammer toe(s) (acquired), right foot; L84 Corns and callosities | CPT/HCPCS: 99213 ==

== ENCOUNTER → 2025-04-20 13:25 | Outpatient (BNVA) | payer MEDICARE, BC, SELFPAY | PROVIDERS: PCP Family Medicine; Referring Provider Family Medicine; Visit Provider Podiatrist | DX: Q82.8 Other specified congenital malformations of skin (principal); M77.41 Metatarsalgia, right foot; M21.611 Bunion of right foot; M20.41 Other hammer toe(s) (acquired), right foot; L84 Corns and callosities; L60.2 Onychogryphosis | CPT/HCPCS: 99213 ==

== ENCOUNTER 2025-06-15 08:16 | Outpatient (CLI) | payer MEDICARE, BC, SELFPAY ==
[2025-06-15 15:33] LABS: Hemoglobin A1C 5.0 % (<5.7)
[2025-06-16 09:49] LABS: Hepatitis C Ab w Rflx HCV PCR Negative (Negative)
== END 2025-06-15 08:17 | disposition home or self-care (01) ==
LOC: LBO 08:17
PROVIDERS: PCP Family Medicine; Visit Provider Family Medicine
DX: Z11.59 Encounter for screening for other viral diseases (principal); E11.9 Type 2 diabetes mellitus without complications
CPT/HCPCS: 36415; 86803; 83036